=== PATIENT | male | born 1955 | race Caucasian/White ===

== ENCOUNTER → 2016-04-25 | Outpatient (CLI) | payer MEDICARE, MEDICAID ==
[~2016-04-25] MED LIST: ACETAMINOPHEN-O1 TAB PO; ALBUTEROL0.09 MG/A2 IH; ASPIR-LOW81 MG PO; ATIVAN1 MG PO; BACTRIM DS 8001 TA1 PO; CEPHALEXIN500 M1 PO; CIPROFLOXACIN500 MG PO; FLAGYL500 MG PO; GLIMEPIRIDE4 M1 PO; HYDROCODONE BIT1 T11 PO; IBU800 MG PO; KEFLEX500 MG PO; KLOR-CON M2020 ME1 PO; KLOR-CON20 MEQ PO; LANTUS SOLOS100 U/M1 SC; LASIX40 MG PO; LISINOPRIL10 M1 PO; LISINOPRIL10 MG PO; LISINOPRIL20 MG PO; LOVASTATIN40 MG PO; METFORMIN1000 MG PO; NEURONTIN600 MG PO; NEURONTIN800 MG PO; NOVOLOG FLEX100 U/ML SC; OMEPRAZOLE20 MG PO; PRAVASTATIN SOD80 MG PO; QUETIAPINE FUM300 M1 PO; REQUIP0.5 MG PO; SEROQUEL100 MG PO; TERBINAFINE250 MG PO; TRAMADOL HCL50 MG PO; TRAMADOL50 MG PO; ZITHROMAX Z PA250 MG PO; ZOFRAN4 MG PO; [UNRECOGNIZED DRUG - OTHER] PO
== END | disposition home or self-care (01) ==
LOC: MRI 10:53
DX: M48.02 Spinal stenosis, cervical region (principal)

== ENCOUNTER 2016-08-14 14:55 | Emergency (ER) | payer MEDICARE, MEDICAID ==
[~2016-08-14] VITALS: Ht 180.3 cm; Wt 119.3 kg
[2016-08-14] MEDS ORDERED: MEDROL DOSEPAK4 MG PO (15:19)
[2016-08-14] MEDS ORDERED: CYCLOBENZAPRINE10 MG PO (15:19)
[2016-08-14 15:49] LABS: BASO # 0.1 10*3/uL (0.0-0.1); BASO % 0.7 % (0.0-1.0); EOS # 0.7 10*3/uL (0.0-0.4); EOS % 6.4 % (1.0-4.0); HEMATOCRIT 39.9 % (42.0-52.0); HEMOGLOBIN 12.7 g/dl (14.0-18.0); IG # 0.1 10*3/uL (0.0-0.1); LYMPH # 2.5 10*3/uL (1.3-4.4); LYMPH % 24.8 % (27.0-41.0); MEAN CELL VOLUME 85.6 fl (80.0-94.0); MEAN CORPUSCULAR HGB 27.3 pg (27.0-31.0); MEAN CORPUSCULAR HGB CONC 31.8 g/dl (33.0-37.0); MEAN PLATELET VOLUME 10.4 fl (9.6-12.3); MONO # 0.8 10*3/uL (0.1-1.0); MONO % 8.1 % (3.0-9.0); NEUT % 59.3 % (47.0-73.0); PLATELET COUNT AUTOMATED 216 10*3/uL (130-400); RED BLOOD COUNT 4.66 10*6/uL (4.50-5.90); RED CELL DISTRI WIDTH 14.1 % (0-14.5); WHITE BLOOD COUNT 10.1 10*3/uL (4.8-10.8)
[2016-08-14 16:04] LABS: ALKALINE PHOSPHATASE 57 U/L (45-117); BILIRUBIN, TOTAL 0.3 mg/dl (0.2-1.0); BUN 20 mg/dl (7-24); C-REACTIVE PROTEIN 1.63 MG/DL (0-0.3); CARBON DIOXIDE 29 mmol/L (21-32); CHLORIDE 101 mmol/L (98-107); EST GLOM FILT AFRICAN AMERICAN > 60 ml/min; GLUCOSE 125 mg/dL (65-99); POTASSIUM 4.6 mmol/L (3.5-5.1); SGOT/AST 24 IU/L (3-35); SGPT/ALT 30 U/L (12-78); SODIUM 139 mmol/L (136-145); TOTAL PROTEIN 7.8 gm/dL (6.4-8.2)
[2016-08-14 17:45] LABS: LA>2 REFLEX 2 HR DRAW NOW
[2016-08-14 17:53] VITALS: BP 132/71
== END 2016-08-14 22:14 | disposition home or self-care (01) ==
LOC: ED 14:55
PROVIDERS: Physician Assistant
DX: G89.18 Other acute postprocedural pain (principal); M54.2 Cervicalgia; Z90.49 Acquired absence of other specified parts of digestive tract; Z79.82 Long term (current) use of aspirin; Z79.4 Long term (current) use of insulin

== ENCOUNTER 2016-08-16 21:02 | Emergency (ER) | payer MEDICARE, MEDICAID ==
[~2016-08-16] VITALS: Ht 180.3 cm; Wt 120.7 kg
[~2016-08-16 21:02] MED LIST changes: +CYCLOBENZAPRINE10 MG PO; +MEDROL DOSEPAK4 MG PO
[2016-08-16 21:45] LABS: HEMATOCRIT 41.3 % (42.0-52.0); HEMOGLOBIN 13.2 g/dl (14.0-18.0); MEAN CORPUSCULAR HGB 27.2 pg (27.0-31.0); PLATELET COUNT AUTOMATED 257 10*3/uL (130-400); RED BLOOD COUNT 4.86 10*6/uL (4.50-5.90); WHITE BLOOD COUNT 15.8 10*3/uL (4.8-10.8)
[2016-08-16 22:01] LABS: ALBUMIN 3.1 gm/dl (3.1-4.5); ALKALINE PHOSPHATASE 60 U/L (45-117); BILIRUBIN, TOTAL 0.6 mg/dl (0.2-1.0); BUN 18 mg/dl (7-24); CARBON DIOXIDE 28 mmol/L (21-32); CHLORIDE 95 mmol/L (98-107); EST GLOM FILT AFRICAN AMERICAN > 60 ml/min; GLUCOSE 250 mg/dL (65-99); POTASSIUM 4.8 mmol/L (3.5-5.1); SGOT/AST 176 IU/L (3-35); SGPT/ALT 68 U/L (12-78); SODIUM 133 mmol/L (136-145); TOTAL PROTEIN 7.6 gm/dL (6.4-8.2)
[2016-08-16 22:09] LABS: EOSINOPHIL # 0.2 10*3/uL (0-0.4); EOSINOPHILS 1 % (1-4); LYMPHOCYTE # 2.2 10*3/uL (1.3-4.4); MONOCYTE # 2.1 10*3/uL (0.1-1.0); NEUTROPHIL # 11.4 10*3/uL (2.3-7.9); NEUTROPHILS 72 % (47-73); PLATELET SUFFICIENCY NORMAL (NORMAL); POLYCHROMASIA SLIGHT; TOTAL CELLS COUNTED 100 #CELLS
[2016-08-16 22:28] VITALS: BP 170/90
[2016-08-16 23:03] LABS: BILIRUBIN NEGATIVE (NEGATIVE); BLOOD TRACE-LYSED (NEGATIVE); CLARITY SL CLOUDY (CLEAR); COLOR YELLOW (YELLOW); GLUCOSE 1+ (NEGATIVE); KETONE TRACE (NEGATIVE); LEUKO ESTERASE NEGATIVE (NEGATIVE); NITRITE NEGATIVE (NEGATIVE); PROTEIN 3+ (NEGATIVE)
[2016-08-16 23:20] LABS: BACTERIA 1+; EPITHELIAL CELLS 0-2; URINE REFLEX COMMENT NO (NO); WBC 0-2 wbc/hpf (0-5)
[2016-08-16 23:42] LABS: LA>2 REFLEX 2 HR DRAW NOW
== END 2016-08-17 00:58 | disposition short-term general hospital (02) ==
LOC: ED 21:02
PROVIDERS: Physician Assistant
DX: J98.11 Atelectasis (principal); M54.2 Cervicalgia; Z98.890 Other specified postprocedural states; Z79.82 Long term (current) use of aspirin; Z79.899 Other long term (current) drug therapy

== ENCOUNTER → 2016-09-27 | Outpatient (CLI) | payer MEDICARE, MEDICAID | END | disposition home or self-care (01) | LOC: RAD 14:46 | DX: M54.2 Cervicalgia (principal); M54.5 Low back pain; M25.78 Osteophyte, vertebrae; G95.29 Other cord compression; Z98.890 Other specified postprocedural states ==

== ENCOUNTER → 2017-01-08 | Outpatient (CLI) | payer MEDICARE, MEDICAID | END | disposition home or self-care (01) | LOC: RAD 12:57 | DX: R10.31 Right lower quadrant pain (principal); I10 Essential (primary) hypertension; Z90.49 Acquired absence of other specified parts of digestive tract; Z87.891 Personal history of nicotine dependence ==

== ENCOUNTER 2017-01-14 02:53 | Emergency (ER) | payer MEDICARE, MEDICAID ==
[~2017-01-14] VITALS: Ht 180.3 cm; Wt 115.7 kg
[2017-01-14 03:48] LABS: BASO % 0.8 % (0.0-1.0); EOS # 0.2 10*3/uL (0.0-0.4); EOS % 2.9 % (1.0-4.0); HEMATOCRIT 37.5 % (42.0-52.0); HEMOGLOBIN 11.9 g/dl (14.0-18.0); LYMPH % 38.6 % (27.0-41.0); MEAN CELL VOLUME 84.5 fl (80.0-94.0); MEAN CORPUSCULAR HGB 26.8 pg (27.0-31.0); MEAN CORPUSCULAR HGB CONC 31.7 g/dl (33.0-37.0); MEAN PLATELET VOLUME 11.1 fl (9.6-12.3); MONO # 0.4 10*3/uL (0.1-1.0); MONO % 7.8 % (3.0-9.0); NEUT # 2.5 10*3/uL (2.3-7.9); NEUT % 49.7 % (47.0-73.0); PLATELET COUNT AUTOMATED 121 10*3/uL (130-400); RED BLOOD COUNT 4.44 10*6/uL (4.50-5.90); RED CELL DISTRI WIDTH 13.9 % (0-14.5); WHITE BLOOD COUNT 5.1 10*3/uL (4.8-10.8)
[2017-01-14 04:03] LABS: ALBUMIN 3.1 gm/dl (3.1-4.5); ALKALINE PHOSPHATASE 49 U/L (45-117); BUN 18 mg/dl (7-24); CHLORIDE 101 mmol/L (98-107); CREATININE 1.06 mg/dL (0.70-1.30); POTASSIUM 4.4 mmol/L (3.5-5.1); SGOT/AST 45 IU/L (3-35); SGPT/ALT 68 U/L (12-78); SODIUM 137 mmol/L (136-145); TOTAL PROTEIN 7.4 gm/dL (6.4-8.2)
[2017-01-14 05:05] VITALS: BP 117/61
== END 2017-01-14 07:19 | disposition home or self-care (01) ==
LOC: ED 02:53
PROVIDERS: Emergency Medicine
DX: R06.02 Shortness of breath (principal); R09.81 Nasal congestion; R73.9 Hyperglycemia, unspecified; J44.9 Chronic obstructive pulmonary disease, unspecified; Z98.890 Other specified postprocedural states; Z79.82 Long term (current) use of aspirin; Z79.899 Other long term (current) drug therapy

== ENCOUNTER 2017-02-24 21:38 | Inpatient (IN) | payer MEDICARE ==
[~2017-02-24] VITALS: Ht 180.3 cm; Wt 121.2 kg
[~2017-02-24 21:38] MED LIST changes: +OMEPRAZOLE40 MG PO
[2017-02-24 21:51] VITALS: BP 170/85
[2017-02-24 22:13] LABS: BASO % 0.4 % (0.0-1.0); EOS # 0.2 10*3/uL (0.0-0.4); EOS % 2.2 % (1.0-4.0); HEMATOCRIT 37.2 % (42.0-52.0); HEMOGLOBIN 11.6 g/dl (14.0-18.0); MEAN CELL VOLUME 86.5 fl (80.0-94.0); MEAN CORPUSCULAR HGB CONC 31.2 g/dl (33.0-37.0); MEAN PLATELET VOLUME 10.6 fl (9.6-12.3); MONO # 0.8 10*3/uL (0.1-1.0); MONO % 10.8 % (3.0-9.0); NEUT # 4.2 10*3/uL (2.3-7.9); NEUT % 58.2 % (47.0-73.0); PLATELET COUNT AUTOMATED 126 10*3/uL (130-400); RED CELL DISTRI WIDTH 14.4 % (0-14.5); WHITE BLOOD COUNT 7.3 10*3/uL (4.8-10.8)
[2017-02-24 22:29] LABS: ALBUMIN 3.4 gm/dl (3.1-4.5); ALKALINE PHOSPHATASE 51 U/L (45-117); BUN 26 mg/dl (7-24); CHLORIDE 98 mmol/L (98-107); CREATININE 1.22 mg/dL (0.70-1.30); POTASSIUM 4.8 mmol/L (3.5-5.1); SGOT/AST 125 IU/L (3-35); SGPT/ALT 83 U/L (12-78); SODIUM 137 mmol/L (136-145); TOTAL PROTEIN 7.5 gm/dL (6.4-8.2)
[2017-02-25] VITALS (9 sets, daily range): BP systolic 112–132; BP diastolic 64–79
[2017-02-25 00:24] LABS: ACT PARTIAL THROMBO TIME 24.9 SECONDS (20.8-31.5); INTERNATIONAL NORM RATIO 1.1 (2.0-3.5)
[2017-02-25 03:22] LABS: BASO % 0.3 % (0.0-1.0); EOS # 0.2 10*3/uL (0.0-0.4); EOS % 2.2 % (1.0-4.0); HEMATOCRIT 33.7 % (42.0-52.0); HEMOGLOBIN 10.7 g/dl (14.0-18.0); LYMPH # 2.1 10*3/uL (1.3-4.4); LYMPH % 26.6 % (27.0-41.0); MEAN CELL VOLUME 85.3 fl (80.0-94.0); MEAN CORPUSCULAR HGB 27.1 pg (27.0-31.0); MEAN CORPUSCULAR HGB CONC 31.8 g/dl (33.0-37.0); MEAN PLATELET VOLUME 10.9 fl (9.6-12.3); MONO # 0.8 10*3/uL (0.1-1.0); MONO % 9.7 % (3.0-9.0); NEUT # 4.7 10*3/uL (2.3-7.9); NEUT % 60.6 % (47.0-73.0); PLATELET COUNT AUTOMATED 122 10*3/uL (130-400); RED BLOOD COUNT 3.95 10*6/uL (4.50-5.90); RED CELL DISTRI WIDTH 14.3 % (0-14.5); WHITE BLOOD COUNT 7.8 10*3/uL (4.8-10.8)
[2017-02-25 03:34] LABS: ACT PARTIAL THROMBO TIME 30.7 SECONDS (20.8-31.5); INTERNATIONAL NORM RATIO 1.1 (2.0-3.5)
[2017-02-25 03:39] LABS: ALBUMIN 3.2 gm/dl (3.1-4.5); BUN 26 mg/dl (7-24); CHLORIDE 101 mmol/L (98-107); CHOLESTEROL 127 mg/dL (<200); CREATININE 1.12 mg/dL (0.70-1.30); HDL CHOLESTEROL 56 mg/dl (40-60); LDL CHOLESTEROL 60 mg/dL (9-159); PHOSPHOROUS 3.7 mg/dL (2.5-4.9); POTASSIUM 4.1 mmol/L (3.5-5.1); SGOT/AST 109 IU/L (3-35); SODIUM 139 mmol/L (136-145); TRIGLYCERIDES 56 mg/dl (<150); VLDL CHOLESTEROL 11 mg/dL (6-40)
--- NOTE | 2017-02-25 03:45 | NUR ---
DR. LOPEZ NOTIFIED OF CRIT TROPONIN LAB. NO FURTHER ORDERS GIVEN AT THIS TIME.
[2017-02-25 03:47] LABS: ALKALINE PHOSPHATASE 48 U/L (45-117); FREE T4 0.94 ng/dl (0.76-1.46); SGPT/ALT 73 U/L (12-78); TOTAL PROTEIN 6.9 gm/dL (6.4-8.2)
--- NOTE | 2017-02-25 07:04 | NUR ---
DR CASILLAS CALLED BACK AND WAS NOTIFIED OF CURRENT LABS AND PTS CURRENT CONDITION. DR CASILLAS STATED CONTINUE CURRENT TREATMENT PLAN.
[2017-02-25 07:18] LABS: VITAMIN D, 25-HYDROXY 22.8 ng/mL (30-100)
--- NOTE | 2017-02-25 08:04 | NUR ---
CRITICAL TROPONIN. NOTIFIED DR HEATON
--- NOTE | 2017-02-25 11:57 | NUR ---
SL NITRO GIVEN FOR C/O CHEST PAIN FOR 09/09.
[2017-02-25] MEDS ORDERED: PERCOCET 5-3251 EACH PO ×2 (12:01→12:02)
[2017-02-25] MEDS ORDERED: CYMBALTA60 MG PO (12:04)
[2017-02-25] MEDS ORDERED: TRAZODONE50 MG PO (12:04)
[2017-02-25] MEDS ORDERED: VICTOZA 2-0.6 MG/0.1 SC (12:05)
[2017-02-25] MEDS ORDERED: LYRICA50 M1 PO (12:05)
--- NOTE | 2017-02-25 12:26 | NUR ---
RECIEVED IN [facility] 6 FOR TRANSFER OUT FOR HEART CATH. STARTED ON NITRO DRIP TO RELIEVE PAIN.
--- NOTE | 2017-02-25 12:46 | NUR ---
DR. CASILLAS HERE AND PREPARING TO TRANSFER PATIENT FOR HEART CATH. NITRO DRIP TITRATED TO RELIEVE PAIN.
--- NOTE | 2017-02-25 12:48 | NUR ---
PAIN UPON ARRIVAL TO [facility] WAS 7 AT START OF NITRO DRIP. NOW STATES HIS PAIN IS A 4 ON THE PAIN SCALE. TITRATED TO 30 MICS OF NITRO. BP STABLE SEE VITAL SIGNS.
--- NOTE | 2017-02-25 13:44 | NUR ---
TAKEN BY JOHANNA TO [facility] FOR HEART CATHERIZATION.
== END 2017-02-25 13:44 | disposition short-term general hospital (02) | DRG 282 ==
LOC: ED 21:38 → EDHOLD 22:47 → 4E 22:58 → ICCU 02-25 12:19
PROVIDERS: Hospitalist; Student in an Organized Health Care Education/Training Program; ADMIT Internal Medicine
DX: I21.4 Non-ST elevation (NSTEMI) myocardial infarction (principal); D69.6 Thrombocytopenia, unspecified; E11.65 Type 2 diabetes mellitus with hyperglycemia; E66.01 Morbid (severe) obesity due to excess calories; K59.00 Constipation, unspecified; D64.9 Anemia, unspecified; R74.0 Nonspecific elevation of levels of transaminase and lactic acid dehydrogenase [LDH]; E55.9 Vitamin D deficiency, unspecified; M54.5 Low back pain; J44.9 Chronic obstructive pulmonary disease, unspecified; R09.81 Nasal congestion; Z82.49 Family history of ischemic heart disease and other diseases of the circulatory system; Z79.4 Long term (current) use of insulin; Z83.3 Family history of diabetes mellitus; Z80.0 Family history of malignant neoplasm of digestive organs; Z79.82 Long term (current) use of aspirin; Z68.32 Body mass index [BMI] 32.0-32.9, adult; Z90.49 Acquired absence of other specified parts of digestive tract

== ENCOUNTER 2017-03-15 22:58 | Inpatient (IN) | payer MEDICARE ==
[~2017-03-15] VITALS: Ht 180.3 cm; Wt 116.4 kg
[~2017-03-15 22:58] MED LIST changes: +CYMBALTA60 MG PO; +LYRICA50 M1 PO; +PERCOCET 5-3251 EACH PO; +TRAZODONE50 MG PO; +VICTOZA 2-0.6 MG/0.1 SC
[2017-03-15 23:02] VITALS: BP 156/79
[2017-03-15 23:05] VITALS: BP 156/79
[2017-03-15 23:14] LABS: BASO # 0.1 10*3/uL (0.0-0.1); BASO % 0.8 % (0.0-1.0); EOS # 0.2 10*3/uL (0.0-0.4); EOS % 2.6 % (1.0-4.0); HEMOGLOBIN 12.2 g/dl (14.0-18.0); LYMPH # 2.7 10*3/uL (1.3-4.4); LYMPH % 31.9 % (27.0-41.0); MEAN CELL VOLUME 85.2 fl (80.0-94.0); MEAN CORPUSCULAR HGB 26.6 pg (27.0-31.0); MEAN CORPUSCULAR HGB CONC 31.3 g/dl (33.0-37.0); MEAN PLATELET VOLUME 10.1 fl (9.6-12.3); MONO # 0.9 10*3/uL (0.1-1.0); NEUT # 4.6 10*3/uL (2.3-7.9); NEUT % 54.2 % (47.0-73.0); PLATELET COUNT AUTOMATED 186 10*3/uL (130-400); RED BLOOD COUNT 4.58 10*6/uL (4.50-5.90); RED CELL DISTRI WIDTH 14.4 % (0-14.5); WHITE BLOOD COUNT 8.6 10*3/uL (4.8-10.8)
[2017-03-15 23:16] VITALS: BP 134/73
[2017-03-15 23:30] VITALS: BP 134/73
[2017-03-15 23:31] LABS: ACT PARTIAL THROMBO TIME 25.5 SECONDS (20.8-31.5); ALBUMIN 3.5 gm/dl (3.1-4.5); ALKALINE PHOSPHATASE 56 U/L (45-117); BUN 23 mg/dl (7-24); CHLORIDE 101 mmol/L (98-107); CREATININE 1.17 mg/dL (0.70-1.30); INTERNATIONAL NORM RATIO 1.1 (2.0-3.5); POTASSIUM 4.5 mmol/L (3.5-5.1); SGOT/AST 35 IU/L (3-35); SGPT/ALT 56 U/L (12-78); SODIUM 135 mmol/L (136-145); TOTAL PROTEIN 8.2 gm/dL (6.4-8.2)
[2017-03-15 23:34] LABS: TROPONIN I 0.073 ng/ml (<0.045)
[2017-03-15 23:45] VITALS: BP 124/67
[2017-03-16] VITALS (7 sets, daily range): BP systolic 120–188; BP diastolic 61–75
--- NOTE | 2017-03-16 01:48 | NUR ---
Time: 44 A 61 year old MALE admitted to 5E under services of MONTEZ TRAN DO. Pt. arrived via bed from ER. Chief complaint: CHEST PAIN. CHARY HECK
--- NOTE | 2017-03-16 01:49 | NUR ---
PATIENT AWAKE AND ALERT, WITH PATIENT. +1 BRYSON PEDAL EDEMA, SKIN WARM DRY AND PINK. NO OPEN AREAS NOTED TO SKIN. PATIENT TALKATIVE AND PLEASANT. DENIES SHORTNESS OF BREATH. STATES CHEST PAIN IS 4/10. NO S/S OF DISTRESS. IV INTACT IN RAC.
--- NOTE | 2017-03-16 02:13 | NUR ---
DR BENSON'S SERVICE WAS CALLED AND NOTIFIED OF CONSULT FOR ELEVATED TROPONIN, RECENT STENT PLACEMENT AND PATIENT OF DR. CASILLAS'S.
[2017-03-16 02:15] LABS: CKMB 2.7 ng/ml (0.5-3.6)
--- NOTE | 2017-03-16 02:15 | NUR ---
PATIENT WAS ADMITTED UNDER DR. MONTEZ RICO, NOT DR. PETE RICO.
[2017-03-16 02:23] LABS: TROPONIN I 0.076 ng/ml (<0.045)
--- NOTE | 2017-03-16 02:39 | NUR ---
SECOND TROPONIN RESULT IS 0.076, DR CAVAZOS'S SERVICE WAS CONTACTED.
--- NOTE | 2017-03-16 02:56 | NUR ---
DR. CASILLAS RETURNED THE CALL AND STATED HE WOULD SEE HIM IN A LITTLE WHILE. TROPONIN RESULTS WERE GIVEN.
[2017-03-16 05:59] LABS: BASO # 0.1 10*3/uL (0.0-0.1); BASO % 0.7 % (0.0-1.0); EOS # 0.2 10*3/uL (0.0-0.4); EOS % 2.9 % (1.0-4.0); HEMATOCRIT 34.6 % (42.0-52.0); HEMOGLOBIN 11.1 g/dl (14.0-18.0); LYMPH # 2.4 10*3/uL (1.3-4.4); LYMPH % 33.8 % (27.0-41.0); MEAN CELL VOLUME 84.6 fl (80.0-94.0); MEAN CORPUSCULAR HGB 27.1 pg (27.0-31.0); MEAN CORPUSCULAR HGB CONC 32.1 g/dl (33.0-37.0); MEAN PLATELET VOLUME 10.8 fl (9.6-12.3); MONO # 0.7 10*3/uL (0.1-1.0); MONO % 10.4 % (3.0-9.0); NEUT # 3.7 10*3/uL (2.3-7.9); NEUT % 51.8 % (47.0-73.0); PLATELET COUNT AUTOMATED 145 10*3/uL (130-400); RED BLOOD COUNT 4.09 10*6/uL (4.50-5.90); RED CELL DISTRI WIDTH 14.5 % (0-14.5); WHITE BLOOD COUNT 7.1 10*3/uL (4.8-10.8)
[2017-03-16 06:02] LABS: ALBUMIN 3.1 gm/dl (3.1-4.5); ALKALINE PHOSPHATASE 49 U/L (45-117); BUN 22 mg/dl (7-24); CHLORIDE 102 mmol/L (98-107); CHOLESTEROL 96 mg/dL (<200); CREATININE 0.91 mg/dL (0.70-1.30); FREE T4 0.97 ng/dl (0.76-1.46); HDL CHOLESTEROL 42 mg/dl (40-60); LDL CHOLESTEROL 31 mg/dL (9-159); PHOSPHOROUS 3.9 mg/dL (2.5-4.9); POTASSIUM 3.8 mmol/L (3.5-5.1); SGOT/AST 32 IU/L (3-35); SGPT/ALT 47 U/L (12-78); SODIUM 138 mmol/L (136-145); TOTAL PROTEIN 7.2 gm/dL (6.4-8.2); TRIGLYCERIDES 114 mg/dl (<150); VLDL CHOLESTEROL 23 mg/dL (6-40)
[2017-03-16 07:00] LABS: INTERNATIONAL NORM RATIO 1.1 (2.0-3.5)
[2017-03-16 07:50] LABS: VITAMIN D, 25-HYDROXY 26.6 ng/mL (30-100)
--- NOTE | 2017-03-16 09:00 | NUR ---
Arboriculture Instructor in to talk to patient. Patient states lives at home with . There are few steps in the home. Physician: young Pharmacy: [facility] Home health services: none Patient's level of ADLs: INDEPENDENT Patient has working utilities: all working DME: none Follow-up physician's appointment after d/c: will be made by hospitalist nurse director upon discharge Does patient want to access PORTAL?: no Discharge plan discussed with patient, patient lives at home with , is independent in adls and ambulation, drives, patient states he will be going back home and denies any home needs. LISSET ROSA
[2017-03-16] MEDS ORDERED: AMARYL4 MG PO (09:13)
[2017-03-16] MEDS ORDERED: METOPROLOL SUCC50 M1 PO (09:13)
[2017-03-16] MEDS ORDERED: PLAVIX75 M1 PO (09:14)
[2017-03-16] MEDS ORDERED: TRAZODONE150 MG PO (09:14)
[2017-03-16] MEDS ORDERED: IMDUR SA30 MG PO (09:14)
[2017-03-16] MEDS ORDERED: CEPHULAC10 GM/151 PO (09:16)
[2017-03-16] MEDS ORDERED: LIPITOR80 MG PO (09:16)
[2017-03-16] MEDS ORDERED: ATIVAN1 MG PO (09:17)
[2017-03-16 09:25] LABS: BILIRUBIN NEGATIVE (NEGATIVE); BLOOD NEGATIVE (NEGATIVE); CLARITY SL CLOUDY (CLEAR); COLOR YELLOW (YELLOW); GLUCOSE NEGATIVE (NEGATIVE); KETONE NEGATIVE (NEGATIVE); LEUKO ESTERASE NEGATIVE (NEGATIVE); NITRITE NEGATIVE (NEGATIVE); PH 5.5 (5.0-9.0)
[2017-03-16 10:05] LABS: BACTERIA TRACE; MUCOUS 1+
--- NOTE | 2017-03-16 23:50 | NUR ---
PER PATIENTS REQUEST PEROCET WAS GIVEN FOR GENERALIZED PAIN RATED 7/10. WILL EVALUATE FOR EFFECTIVENESS.
[2017-03-17] VITALS: BP 136/74
--- NOTE | 2017-03-17 01:00 | NUR ---
PT RESTING IN CHAIR. STATES PAIN IS LESS AT THIS TIME. PT HAS NO COMPLAINTS AT THIS TIME.
[2017-03-17 06:50] LABS: BASO % 0.5 % (0.0-1.0); EOS # 0.2 10*3/uL (0.0-0.4); EOS % 3.4 % (1.0-4.0); HEMATOCRIT 34.1 % (42.0-52.0); LYMPH # 1.9 10*3/uL (1.3-4.4); LYMPH % 32.4 % (27.0-41.0); MEAN CELL VOLUME 84.6 fl (80.0-94.0); MEAN CORPUSCULAR HGB 27.3 pg (27.0-31.0); MEAN CORPUSCULAR HGB CONC 32.3 g/dl (33.0-37.0); MEAN PLATELET VOLUME 11.2 fl (9.6-12.3); MONO # 0.7 10*3/uL (0.1-1.0); MONO % 11.9 % (3.0-9.0); NEUT # 3.1 10*3/uL (2.3-7.9); NEUT % 51.5 % (47.0-73.0); PLATELET COUNT AUTOMATED 131 10*3/uL (130-400); RED BLOOD COUNT 4.03 10*6/uL (4.50-5.90); RED CELL DISTRI WIDTH 14.4 % (0-14.5)
[2017-03-17 07:32] LABS: CHLORIDE 100 mmol/L (98-107); POTASSIUM 4.1 mmol/L (3.5-5.1); SODIUM 138 mmol/L (136-145)
[2017-03-17 07:41] LABS: BUN 26 mg/dl (7-24); CREATININE 0.99 mg/dL (0.70-1.30); PHOSPHOROUS 3.7 mg/dL (2.5-4.9)
[2017-03-17 08:00] VITALS: BP 118/74
--- NOTE | 2017-03-17 09:50 | NUR ---
PATIENT COMPLAINING OF GENERALIZED PAIN AT THIS TIME AND MEDICATED WITH PO PERCOCET PER ORDER. WILL MONITOR FOR EFFECTIVENESS.
--- NOTE | 2017-03-17 11:20 | NUR ---
PER PATIENT, PERCOCET HAS BEEN EFFECTIVE. NO FURTHER COMPLAINTS.
[2017-03-17 12:00] VITALS: BP 160/82
[2017-03-17] MEDS ORDERED: VITAMIN D-32000 UNI1 PO (14:08)
[2017-03-17] MEDS ORDERED: COLCHICINE0.6 M1 PO (16:43)
[2017-03-17] MEDS ORDERED: NAPROXEN500 MG PO (16:43)
--- NOTE | 2017-03-17 16:48 | NUR ---
Discharge instructions reviewed with patient/family. Patient receptive and verbalizes understanding. Follow-up care arranged. Written instructions given to patient/family. HEPLOCK DISCONTINUED. PATIENT AMBULATORY OFF FLOOR WITH . ENVIRONMENTAL SAMPLER REMOVED. SORAYA ALVARADO
== END 2017-03-17 16:48 | disposition home or self-care (01) | DRG 206 ==
LOC: ED 22:58 → EDHOLD 03-16 00:22 → 5E 03-16 00:32
PROVIDERS: Emergency Medicine; Family Medicine; Internal Medicine Nephrology; ADMIT Emergency Medicine
DX: M94.0 Chondrocostal junction syndrome [Tietze] (principal); I74.9 Embolism and thrombosis of unspecified artery; I31.3 Pericardial effusion (noninflammatory); E11.65 Type 2 diabetes mellitus with hyperglycemia; E66.01 Morbid (severe) obesity due to excess calories; E87.1 Hypo-osmolality and hyponatremia; I10 Essential (primary) hypertension; J44.9 Chronic obstructive pulmonary disease, unspecified; K59.00 Constipation, unspecified; D64.9 Anemia, unspecified; I25.2 Old myocardial infarction; Z68.36 Body mass index [BMI] 36.0-36.9, adult; Z79.84 Long term (current) use of oral hypoglycemic drugs; Z98.1 Arthrodesis status; Z79.4 Long term (current) use of insulin; Z90.49 Acquired absence of other specified parts of digestive tract; Z79.899 Other long term (current) drug therapy; Z82.49 Family history of ischemic heart disease and other diseases of the circulatory system; Z80.0 Family history of malignant neoplasm of digestive organs; Z79.82 Long term (current) use of aspirin; Z95.5 Presence of coronary angioplasty implant and graft

== ENCOUNTER → 2017-04-12 | Outpatient (CLI) | payer MEDICARE ==
[~2017-04-12] MED LIST changes: +AMARYL4 MG PO; +CEPHULAC10 GM/151 PO; +COLCHICINE0.6 M1 PO; +IMDUR SA30 MG PO; +LIPITOR80 MG PO; +METOPROLOL SUCC50 M1 PO; +NAPROXEN500 MG PO; +PLAVIX75 M1 PO; +TRAZODONE150 MG PO; +VITAMIN D-32000 UNI1 PO
[2017-04-12 10:24] LABS: ALBUMIN 3.3 gm/dl (3.1-4.5); BILIRUBIN, DIRECT < 0.1 mg/dL (0.0-0.2); BUN 17 mg/dl (7-24); CHLORIDE 99 mmol/L (98-107); CHOLESTEROL 173 mg/dL (<200); CREATININE 1.02 mg/dL (0.70-1.30); POTASSIUM 4.2 mmol/L (3.5-5.1); SGOT/AST 35 IU/L (3-35); SGPT/ALT 61 U/L (12-78); SODIUM 137 mmol/L (136-145); TOTAL PROTEIN 7.5 gm/dL (6.4-8.2); TRIGLYCERIDES 121 mg/dl (<150); VLDL CHOLESTEROL 24 mg/dL (6-40)
[2017-04-12 10:28] LABS: ALKALINE PHOSPHATASE 51 U/L (45-117); HDL CHOLESTEROL 54 mg/dl (40-60); LDL CHOLESTEROL 95 mg/dL (9-159)
[2017-04-12 11:07] LABS: VITAMIN D, 25-HYDROXY 24.1 ng/mL (30-100)
== END | disposition home or self-care (01) ==
LOC: LAB 09:38
PROVIDERS: Internal Medicine
DX: E11.65 Type 2 diabetes mellitus with hyperglycemia (principal); E11.40 Type 2 diabetes mellitus with diabetic neuropathy, unspecified; E78.5 Hyperlipidemia, unspecified; N40.0 Benign prostatic hyperplasia without lower urinary tract symptoms; E55.9 Vitamin D deficiency, unspecified

== ENCOUNTER → 2017-08-08 | Outpatient (CLI) | payer MEDICARE ==
[2017-08-08 13:46] LABS: BILIRUBIN NEGATIVE (NEGATIVE); BLOOD TRACE-INTACT (NEGATIVE); CLARITY CLEAR (CLEAR); COLOR YELLOW (YELLOW); GLUCOSE NEGATIVE (NEGATIVE); KETONE TRACE (NEGATIVE); LEUKO ESTERASE NEGATIVE (NEGATIVE); NITRITE NEGATIVE (NEGATIVE); SPECIFIC GRAVITY >= 1.030 (1.005-1.030)
[2017-08-08 14:16] LABS: ALBUMIN 3.3 gm/dl (3.1-4.5); ALKALINE PHOSPHATASE 48 U/L (45-117); BILIRUBIN, DIRECT 0.1 mg/dL (0.0-0.2); BUN 14 mg/dl (7-24); CHLORIDE 102 mmol/L (98-107); CHOLESTEROL 116 mg/dL (<200); CREATININE 0.93 mg/dL (0.70-1.30); HDL CHOLESTEROL 55 mg/dl (40-60); LDL CHOLESTEROL 33 mg/dL (9-159); POTASSIUM 4.5 mmol/L (3.5-5.1); SGOT/AST 48 IU/L (3-35); SGPT/ALT 56 U/L (12-78); SODIUM 138 mmol/L (136-145); TOTAL PROTEIN 7.7 gm/dL (6.4-8.2); TRIGLYCERIDES 142 mg/dl (<150); VLDL CHOLESTEROL 28 mg/dL (6-40)
[2017-08-08 14:19] LABS: MUCOUS 1+; RBC 0-2 rbc/hpf (0-2)
[2017-08-08 14:35] LABS: VITAMIN D, 25-HYDROXY 27.9 ng/mL (30-100)
== END | disposition home or self-care (01) ==
LOC: LAB 13:09
PROVIDERS: Internal Medicine
DX: G62.9 Polyneuropathy, unspecified (principal); E55.9 Vitamin D deficiency, unspecified; E11.9 Type 2 diabetes mellitus without complications; E78.5 Hyperlipidemia, unspecified

== ENCOUNTER → 2017-09-07 | Outpatient (CLI) | payer MEDICARE ==
[~2017-09-07] MED LIST changes: +ALDACTONE25 MG PO; +BUMETANIDE2 MG PO; +CRESTOR40 M1 PO; +DOCUSATE SODIU100 M2 PO; +FARXIGA5 M1 PO; -LISINOPRIL10 M1 PO; +LYRICA100 M1 PO; +OCUVITE WITH L1 EACH PO; +POTASSIUM CHLO20 MEQ PO; +PREDNISONE20 M1 PO; +REXULTI2 MG PO; +TORSEMIDE20 MG PO; +VISTARIL50 MG PO; +VITAMIN D5000 UNIT PO; +VRAYLAR3 MG PO; +ZESTRIL2.5 MG PO; +ZITHROMAX250 MG PO
--- NOTE | ~2017-09-07 | ST ---
[place], [place] EXERCISE STRESS TEST REPORT NAME: FANNY AGUILA [facility] #: [id number] UNIT #: [id number] ROOM: DOCTOR: STEPHANIE CASILLAS MD BIRTHDATE: [birth year] DOS: 09/07/2017 LEXISCAN STRESS EKG. REFERRING PHYSICIAN: Dr. Julian INDICATION: Shortness of breath. The patient underwent standard protocol Lexiscan stress EKG. Baseline EKG shows normal sinus rhythm, nonspecific ST-T wave changes. The patient's baseline heart rate of 87 with blood pressure 136/70. The patient's peak heart rate was 91 with a blood pressure 140/61. The patient had no chest pain, no ischemic changes and with rare PVCs as the only arrhythmia. SUMMARY OF FINDINGS: Unremarkable Lexiscan stress EKG. Please see separate report for perfusion scan results. STEPHANIE CASILLAS MD CM:STRESS:EXERCISE STRESS TEST REPORT [id number] STEPHANIE CASILLAS MD
== END | disposition home or self-care (01) ==
LOC: CARD 07:41
DX: I21.4 Non-ST elevation (NSTEMI) myocardial infarction (principal); I51.7 Cardiomegaly; R07.2 Precordial pain; R06.02 Shortness of breath

== ENCOUNTER 2017-09-11 14:36 | Inpatient (IN) | payer MEDICARE ==
[2017-09-11] VITALS (8 sets, daily range): BP systolic 94–166; BP diastolic 46–72
[~2017-09-11] VITALS: Ht 180.3 cm; Wt 122.5 kg
--- NOTE | ~2017-09-11 | CON ---
[place], [place] REPORT OF CONSULTATION NAME: FANNY AGUILA [facility] #: [id number] UNIT #: [id number] ROOM: 525 DOCTOR: MARY COX MD BIRTHDATE: [birth year] DOS: 09/12/2017 REASON FOR CONSULTATION: Dyspnea, history of coronary artery disease. HISTORY OF PRESENT ILLNESS: The patient is a 62-year-old man who does have a history of multiple medical problems including type 2 diabetes mellitus, obstructive sleep apnea, chronic obstructive pulmonary disease, varicose veins, morbid obesity, and depression. He reports having catheterization in July 2016, which showed "mild disease." He presented to the hospital in January 2017 with increased chest pain and dyspnea. Troponin was over 10 and he was transferred to the [facility] where catheterization on 02/25/2017 showed an ejection fraction of 55%. The left main was free of disease. The LAD had a 50% stenosis. The circumflex had a 50% distal stenosis. A small second obtuse marginal had a 70% stenosis. The nondominant right coronary artery was occluded and was treated with angioplasty and placement of a 2.0 mm drug-eluting stent that was postdilated to 2.25 mm. He had an excellent angiographic response. Since then, he has felt reasonably well, but gradually has developed worsening dyspnea and fatigue. He was seen by Dr. Ragsdale, who arranged for an echocardiogram and stress test. The echocardiogram on 09/07/2017 showed normal left ventricular size, segmental wall motion and systolic function with an ejection fraction between 55 and 60%. There was stage 1 diastolic dysfunction, but no significant valve disease. The myocardial perfusion study done on 09/07/2017 showed an ejection fraction of 66% and normal myocardial perfusion. There was no evidence for ischemia. The patient states that since his angioplasty in January 2017, he has been free of any significant chest pain. He only recalls 1 very brief episode of chest pain several days ago, which was unlike the pain he had at the time of his heart attack. His biggest complaint has been worsening dyspnea. He states that he is to the point where he becomes breathless and lightheaded with walking short distances. He was seen by his trauma therapist, Dr. Saunders, as an outpatient and then hospitalized for further assessment. Since his admission, his electrocardiograms have shown no acute changes. Serial cardiac troponin levels have been normal. Chest x-ray shows no infiltrates and a CT scan of the chest showed no acute process. He did have evidence for cirrhosis. PAST MEDICAL HISTORY: Includes, 1. Coronary artery disease documented first in July 2016. 2. Status post acute myocardial infarction January 2017. Catheterization 02/25/2017 showed a normal left main, 50% LAD stenosis, 50% distal circumflex stenosis, 70% stenosis of a small second obtuse marginal and total occlusion of a nondominant right coronary artery. The right coronary artery was treated with a drug-eluting stent. 3. History of deep venous thrombosis and varicose veins. 4. Degenerative joint disease. 5. Morbid obesity. 6. Type 2 diabetes mellitus. 7. Depression. [place], [place] REPORT OF CONSULTATION [id number] UNIT #: [id number] ROOM: [facility] DOCTOR: MARY COX MD BIRTHDATE: [birth year] 8. Status post cholecystectomy, cervical spine fusion, and varicose vein stripping. MEDICATIONS PRIOR TO ADMISSION: Aspirin 81 mg per day, bumetanide 2 mg daily, cariprazine 3 mg daily, cholecalciferol 2000 units daily, clopidogrel 75 mg daily, Farxiga 5 mg daily, docusate 100 mg daily, duloxetine 60 mg daily, glimepiride 8 mg daily, hydroxyzine 50 mg p.r.n. itch, isosorbide mononitrate 30 mg daily, lactulose 30 mL t.i.d. as needed, lisinopril 2.5 mg per day, lorazepam 2 mg at bedtime, metformin 1000 mg b.i.d., metoprolol 25 mg daily, omeprazole 40 mg daily, oxycodone with acetaminophen q.4 hours p.r.n., potassium 20 mEq daily, Lyrica 100 mg b.i.d., rosuvastatin 40 mg daily, spironolactone 25 mg daily, Ocuvite daily, Lantus insulin 80 units twice a day and Victoza 1.8 mg subcutaneously daily. ALLERGIES: He has no known drug allergies. FAMILY HISTORY: The patient's father at age 75 from a heart attack and uncle of colon cancer and heart disease. His mother of cancer. REVIEW OF SYSTEMS: The patient denies diplopia, loss of vision, or focal weakness. He does have dyspnea with minor exertion, severe fatigue and leg weakness. He denies nausea or vomiting. He denies fevers, chills, sweats or recent weight change. He denies orthopnea or PND. He has had peripheral edema. He denies any chest pain similar to what he had with his myocardial infarction. He denies nausea or vomiting. He denies change in bowel or bladder habits. He denies bleeding from any site and specifically denies hematuria, hematochezia, hemoptysis or hematemesis. He denies any new skin rashes. Remainder review of systems is negative except as noted above. SOCIAL HISTORY: The patient is and lives with his . He drinks alcohol rarely. He was a smoker, but quit more than 20 years ago. PHYSICAL EXAMINATION: GENERAL: The patient is markedly overweight white male who is awake, alert and oriented. VITAL SIGNS: Pulse is 100 and regular, blood pressure is 142/65. He is afebrile. He weighs 122.5 kg and has a body mass index of 51. HEENT: Normocephalic and atraumatic. Extraocular muscles are intact. Sclerae are clear. Pupils equal, round and react to light. The oral mucosa is moist. Tongue is midline. NECK: Supple. He has no jugular distention. He does have mild hepatojugular reflux. Carotids are full. I heard no bruits. He had no neck or supraclavicular masses. He has well-healed anterior and posterior cervical laminectomy scars. He has no bruits or thyromegaly. LUNGS: Respirations are unlabored at rest. He does have decreased breath sounds with a few crackles at the bases bilaterally. He does have presacral edema. He has no chest wall tenderness. CARDIOVASCULAR: His heart has a regular rhythm. He has a fourth heart sound, but no third heart sound. The PMI could not be felt. He has no obvious murmurs or rubs. There is no precordial heave, lift or thrill. [place], [place] REPORT OF CONSULTATION NAME: FANNY AGUILA UNIT #: [id number] ROOM: [facility] DOCTOR: MARY COX MD BIRTHDATE: [birth year] ABDOMEN: Obese. There seems to be a slight fluid wave. There are no masses or organomegaly. He has no tenderness or rebound. EXTREMITIES: Showed no clubbing or cyanosis. He does have 2+ edema to above the knees. Pedal pulses are diminished, but palpable in the feet bilaterally. LABORATORY DATA: I reviewed his electrocardiogram, which showed sinus rhythm, but no acute changes. It was unchanged from previous electrocardiograms. Serial cardiac biomarkers have been normal. Hemoglobin is 11.5, white count 6200, platelet count 133,000. Sodium 135, potassium 5.0, chloride 99, CO2 of 27, BUN 38, creatinine 1.4. Sugar was 462 this morning. IMPRESSION: 1. Fluid overload. The patient does have a history of renal insufficiency, fatty liver, and mild diastolic dysfunction, exacerbated by obstructive sleep apnea and morbid obesity. He has also been a diabetic for quite some time. His fluid overload may be related to diastolic left ventricular failure, chronic respiratory problems, nephrosis from diabetic renal disease, etc. I doubt that this represents an acute coronary syndrome given his recent catheterization results, unremarkable EKG, normal troponin, etc. 2. Morbid obesity. 3. Type 2 diabetes mellitus, on insulin. 4. Chronic obstructive pulmonary disease. 5. Fatty liver with cirrhotic changes. PLAN: We will aggressively diurese the patient over the next 24 hours to see if that does not improve his respiratory status. I will be getting urinalysis and micro urine albumin levels to see if he has evidence for nephrotic syndrome. He recently did have an echo and stress test, which were relatively benign. I do not think that any other cardiac workup at this time will be fruitful. We will follow the patient with his other physicians and we thank the hospitalist physicians for asking our advice regarding the patient's care. MARY COX MD CM:CONSTR:REPORT OF CONSULTATION 1420 09/12/17 1514 interface
--- NOTE | ~2017-09-11 | PR ---
[place], [place] PROGRESS NOTE NAME: FANNY NERI [facility] #: [id number] UNIT #: [id number] ROOM: 525 DOCTOR: MARY COX MD BIRTHDATE: [birth year] DOS: 09/13/2017 CARDIOLOGY PROGRESS NOTE SUBJECTIVE: Fanny Neri was seen at his bedside today with his in attendance. He diuresed briskly overnight and is feeling significantly better. He is less fatigued and is breathing much more easily. He denies any chest pain, palpitations or syncope. His notes that he has had multiple tick bites over the last few years. She states that he has had a target lesion and rash. She is worried about Lyme disease. She states that he was tested once, but the test was unremarkable. She would like him to be tested again. PHYSICAL EXAMINATION: VITAL SIGNS: Today, his pulse is 79 and regular, blood pressure is 145/66. He is afebrile. NECK: Supple. He has no jugular distention. Carotids are full. I heard no bruits. LUNGS: Respirations were unlabored. His chest was clear to auscultation and percussion. He had decreased breath sounds at the bases; however, but he had no rales. He has no presacral edema. HEART: Has a regular rhythm with an S4 gallop. Heart tones are distant. There were no murmurs. ABDOMEN: Obese, but otherwise benign. EXTREMITIES: Showed 1+ edema of the ankles and feet bilaterally despite the fact that he has been lying down with his feet elevated. Hemoglobin today is 11.3, white count 10,600, platelet count 146,000. Sodium 136, potassium 4.5, chloride 97, CO2 27, BUN 43 and creatinine 1.33. IMPRESSION: 1. Fluid overload. The patient has a history of renal insufficiency, fatty liver and mild diastolic dysfunction, exacerbated by obstructive sleep apnea and morbid obesity. We did look for nephrotic syndrome, but his urinalysis showed no protein. He does seem to be responding nicely to aggressive diuresis. 2. Morbid obesity. 3. Type 2 diabetes mellitus, on insulin. 4. Chronic obstructive pulmonary disease. 5. Fatty liver with cirrhotic changes. PLAN: We will continue aggressive diuresis for another 24 hours and continue to observe him with his other physicians. We will also continue to monitor his renal functions. I thank the hospitalist physicians for asking our advice regarding his care. [place], [place] PROGRESS NOTE NAME: FANNY NERI UNIT #: [id number] ROOM: 525 DOCTOR: BROOKE SCHWARZ,MARY BIRTHDATE: [birth year] MARY COX MD CM:PNTRANS [id number] [id number] MARY COX MD 09/13/17 1508 interface
--- NOTE | ~2017-09-11 | EKG ---
[place], [place] ELECTROCARDIOGRAM REPORT NAME: FANNY AGUILA UNIT #: [id number] ROOM: [facility] DOCTOR: BRUNO OBREGON MD,INDER BIRTHDATE: [birth year] DOS: 09/11/2017 TIME: 03:58 p.m. Electrocardiogram showed normal sinus rhythm. Heart rate 82 beats per minute. INDER CARR MD CM:EKGRPT:ELECTROCARDIOGRAM REPORT [id number] INDER OBREGON MD
--- NOTE | ~2017-09-11 | PR ---
[place], [place] PROGRESS NOTE NAME: FANNY AGUILA [facility] #: [id number] UNIT #: [id number] ROOM: 525 DOCTOR: MARY COX MD BIRTHDATE: [birth year] DOS: 09/15/2017 SUBJECTIVE: The patient was seen at his bedside today, 09/15/2017, for followup of his acute on chronic diastolic congestive heart failure. He continues to diurese despite the fact that he has been switched from IV furosemide to oral torsemide. His fluid balance remains negative and he feels much better. He has been able to ambulate in the halls without difficulty. His legs are no longer swollen and he feels back to his normal self. PHYSICAL EXAMINATION: VITAL SIGNS: Today, pulse is 84 and regular, blood pressure 134/66. He is afebrile. NECK: Supple. He has no jugular distention. Carotids are full. I heard no bruits. LUNGS: Respirations are unlabored and his chest is clear to auscultation and percussion. HEART: Has a regular rhythm. He has a fourth heart sound, but no third heart sound or murmur. The PMI is not displaced. He has no precordial heave, lift or thrill. ABDOMEN: Soft and normally active. EXTREMITIES: Showed no edema. Peripheral pulses are palpable in the feet. LABORATORY DATA: Hemoglobin today is 12.3, white count is 12,000, platelet count 170,000. Sodium is 138, potassium 4.0, chloride 97, CO2 33, BUN 46, creatinine 1.36. IMPRESSION: 1. Fluid overload. This is probably due to a combination of diastolic heart failure, renal insufficiency, fatty liver, obstructive sleep apnea and morbid obesity. He does have proteinuria, but no evidence for nephrotic syndrome. 2. Morbid obesity. 3. Type 2 diabetes mellitus, on insulin. 4. Chronic obstructive pulmonary disease. 5. Fatty liver with cirrhotic change. PLAN: We will continue aggressive oral diuresis. Since he appears euvolemic, I think he could be discharged to home with close outpatient followup. He probably should have renal functions rechecked in about a week and followup in the office in 2-3 weeks. He should continue to weigh himself on a daily basis and let us know if his weight increases 3 pounds overnight or 5 pounds in a week. At the time of this dictation, his medications include torsemide 40 mg b.i.d., spironolactone 25 mg daily, Lyrica 50 mg t.i.d., potassium 20 mEq daily, metoprolol 25 mg daily, metformin 1000 mg b.i.d., lisinopril 2.5 mg daily, Victoza subcutaneously daily, isosorbide mononitrate 30 mg daily, Lantus insulin twice a day, Cymbalta 60 mg daily, Colace 100 mg daily, clopidogrel 75 mg daily, cholecalciferol 2000 units daily, atorvastatin 40 mg daily, aspirin 81 mg daily, glimepiride 8 mg daily, omeprazole 40 mg daily, Percocet 4 hours p.r.n., lactulose 20 grams t.i.d. p.r.n., Vistaril 50 mg daily p.r.n., Humalog insulin by sliding scale, DuoNeb by nebulizer q. 4 hours as needed, Restoril 15 mg p.o. at bedtime. He is also on steroids, which will probably be decreased on a [place], [place] PROGRESS NOTE NAME: FANNY AGUILA UNIT #: [id number] ROOM: [facility] DOCTOR: MARY COX MD BIRTHDATE: [birth year] sliding scale. I would like to have him follow up with us in the office in a few weeks. I thank the hospitalist group for asking our advice regarding his care. MARY COX MD CM:PNTRANS [id number] MARY COX MD 09/15/17 2256 interface
--- NOTE | ~2017-09-11 | PR ---
[place], [place] PROGRESS NOTE NAME: FANNY AGUILA [facility] #: [id number] UNIT #: [id number] ROOM: 525 DOCTOR: BRUNO OBREGON MD,INDER BIRTHDATE: [birth year] DOS: 09/14/2017 SUBJECTIVE: The patient noted comfortable at this time without any acute distress, has not been noted any symptoms of chest pain. Shortness of breath is improving and edema of the extremities of the patient was also improving with reduction of the body weight for the patient, less fluid retention per patient. OBJECTIVE: VITAL SIGNS: Normal temperature, respiratory rate 18, heart rate 86, blood pressure 140/48. Pulse ox saturation on room air 96% saturation. HEENT: Examination shows head was atraumatic. Eyes nonicterus. NECK: Supple. CARDIOVASCULAR: S1, S2 audible. LUNGS: Without any wheeze or crackles. ABDOMEN: Soft, nontender. EXTREMITIES: Resolving edema. LABORATORY DATA: CBC: WBC count of 12,000. Hemoglobin 12, platelet count normal. BMP: BUN 46, creatinine was normal. IMPRESSION: 1. The patient with resolving over fluid retention for this patient progressively at the present time. 2. Resolving acute exacerbation of bronchial asthma ____. 3. Obstructive sleep apnea disorder. PLAN OF MANAGEMENT: No change in the plan of management, except continued gradual reduction of corticosteroids. Continue diuretics. Monitor kidney functions closely. Usual care, other supportive therapy, plan of management and care. INDER CARR MD CM:PNTRANS [id number] INDER OBREGON MD 09/14/17 1704 interface
--- NOTE | ~2017-09-11 | PR ---
[place], [place] PROGRESS NOTE NAME: FANNY AGUILA [facility] #: [id number] UNIT #: [id number] ROOM: 525 DOCTOR: BRUNO OBREGON MD,INDER BIRTHDATE: [birth year] DOS: 09/15/2017 SUBJECTIVE: He has been noted continued reduction and improvement in respiratory symptoms as well as weight loss with a losing water. The patient denies symptoms of chest pain or hemoptysis. Shortness of breath and dizziness. The patient's all symptoms have been improving. OBJECTIVE: VITAL SIGNS: Normal temperature, respiratory rate 16, heart rate 84, blood pressure 134/66, pulse oxygen saturation on room air 93% saturation at rest was noted. HEENT: Chronic obesity. Head was atraumatic. Eyes nonicterus. NECK: Supple. CARDIOVASCULAR: S1, S2 is audible. LUNGS: Without any wheezing or crackles at the present time. ABDOMEN: Soft and obese. EXTREMITIES: The patient noted minimal edema. IMPRESSION: 1. The patient with improvement in overall fluid retention. The patient with improving shortness of breath, resolving exacerbation of bronchial asthma. 2. Obstructive sleep apnea disorder. PLAN OF TREATMENT: The patient was advised to resume his previous inhaler medication, which has not been used regularly as advised from the office visit previously. Discharge planning noted in progress. The patient could be discharged from the pulmonary standpoint with adjustment diuretics per recommendation of Cardiology Services. INDER CARR MD CM:PNTRANS [id number] INDER OBREGON MD 09/16/17 0030 interface
--- NOTE | ~2017-09-11 | PR ---
[place], [place] PROGRESS NOTE [id number] UNIT #: [id number] ROOM: 525 DOCTOR: BRUNO OBREGON MD,INDER BIRTHDATE: [birth year] DOS: 09/13/2017 SUBJECTIVE: The patient noted comfortable at this time without any acute distress. He has not been noted with any changes, still complaining of symptoms of shortness of breath and dizziness upon walking. He has been continued diuretic therapy and was assessed by Dr. Garcia yesterday as well. He has been receiving the corticosteroids and bronchodilators. This morning, the patient was seen sitting on the chair in his room. OBJECTIVE: VITAL SIGNS: Normal temperature, respiratory rate 18, heart rate 79, blood pressure 145/66. Pulse ox saturation on room air 98% saturation. HEENT: Head was atraumatic. Eye nonicterus. NECK: Supple. CARDIOVASCULAR: S1, S2 audible. LUNGS: Noted free of any wheezing or crackles. ABDOMEN: Soft, nontender and obese. EXTREMITIES: Resolving edema. LABORATORY DATA: BMP today: BUN 43, creatinine 1.33, glucose of 266. CBC: Normal WBC count, hemoglobin 11.3. IMPRESSION: The patient fluid overload with symptoms of shortness of breath and wheezing, possible consideration of acute exacerbation of bronchial asthma already treated with the corticosteroids. PLAN OF TREATMENT: Decrease the corticosteroid dose 40 mg daily with continuation of other therapy, plan of management. Usual care, additional treatment changes to be made based on progression of illness. Agree with the diuresis for this patient of the kidney functions to be monitored closely while on the diuretic including electrolytes. INDER CARR MD CM:PNTRANS [id number] INDER OBREGON MD 09/13/17 1459 interface
--- NOTE | ~2017-09-11 | CON ---
[place], [place] REPORT OF CONSULTATION NAME: FANNY AGUILA [facility] #: [id number] UNIT #: [id number] ROOM: 525 DOCTOR: INDER BARRAGAN MD BIRTHDATE: [birth year] DOS: 09/12/2017 PULMONARY CONSULTATION, EVALUATION AND MANAGEMENT CONSULTATION REQUESTED BY: Hospitalist. REASON FOR CONSULTATION: For assessment of shortness of breath. HISTORY OF PRESENT ILLNESS: This is a 62-year-old white male patient who originally seen in my office yesterday as the patient has been noted with gradual increased symptoms of shortness of breath occurring for the past several days. Shortness of breath occurring with walking about 10-20 feet for the patient at a level surface. Also, the patient was noted with passing out sensation. He was noted with some symptoms of cough as well. The patient denies symptoms of active wheezing. The patient was seen by the heel seat flap stapler. The patient was reported with excessive weight gain and edema of the patient about 20+ pounds. He has been started on a strong diuretic per . As the patient was examined in the office. The patient was sent to the Emergency Room for further assessment because of persistent severe shortness of breath, symptoms of dizziness and possible near syncopal episodes as well. He has been assessed in the Emergency Room and currently hospitalized. This morning, the patient was seen sitting on side of the bed, stating with the reduction in symptoms of the patient from yesterday with current medical management. REVIEW OF SYSTEMS: CONSTITUTIONAL: Fatigue and tiredness reported for the patient, which increases with exertion. EYES: Denies any burning, redness, or tenderness. EARS, NOSE, AND THROAT: Denies sore throat, hoarseness, otalgia, postnasal drainage or epistaxis. CARDIOVASCULAR: Denies anginal pain, edema or pain of lower extremities. GASTROINTESTINAL: Denies dysphagia, nausea, vomiting, diarrhea, abdominal pain, hematemesis, melena, or hematochezia. SKIN: There were no abnormal lesions or rashes. MUSCULOSKELETAL: No acute joint pain, redness, or tenderness. SKIN: No lesions or rashes. CENTRAL NERVOUS SYSTEM: The patient noted without any headache, syncopal episode, symptom of dizziness reported with walking. Remaining systems were reviewed, they were noted all negative. PAST MEDICAL HISTORY: 1. Noted mild intermittent bronchial asthma. 2. Type 2 diabetes mellitus. 3. Hypercholesterolemia. 4. Chronic obesity. 5. Gastroesophageal reflux. 6. Essential hypertension. 7. Osteoarthritis. 8. Cervical arthritis of the patient. [place], [place] REPORT OF CONSULTATION NAME: FANNY AGUILA UNIT #: [id number] ROOM: [facility] DOCTOR: INDER BARRAGAN MD BIRTHDATE: [birth year] 9. General anxiety disorder and depression. 10. Restless leg syndrome. 11. Obstructive sleep apnea disorder treated with the CPAP 10 cm of water. 12. Coronary artery disease. PAST SURGICAL HISTORY: 1. Cholecystectomy. 2. Cardiac catheterization. 3. Rotator cuff surgery of the patient on the left side. 4. Cervical fusion and then reexploration surgery of the patient that was done in 2017 in [facility]. 5. Tonsillectomy. SOCIAL HISTORY: The patient is and lives at home. He denies history of alcohol use or any illicit drugs. Tobacco use was noted previously for the patient from age of [age] years old, 5 pack of cigarettes per day for the patient until 1995. FAMILY HISTORY: The patient's father at 75 years old with complication of COPD. Mother at the age of 60 due to complication related to the leukemia. HOME MEDICATIONS: Listed for the patient on admission: Aspirin, ____, vitamin D, Plavix, Farxiga, Colace, Cymbalta, Amaryl, hydroxyzine, Lantus insulin, Imdur SA, lactulose, Victoza, lisinopril, Ativan, metformin, metoprolol tartrate, omeprazole, Percocet, potassium chloride, Lyrica, Crestor, and multivitamins. DRUG ALLERGIES: No known drug allergies. PHYSICAL EXAMINATION: GENERAL: This is a 62-year-old male who has been noted currently sitting on side of bed without any acute distress. Height was noted as 5 feet 11 inches, weight of 270 pounds, BMI 37. VITAL SIGNS: Normal temperature, respiratory rate 16-18, heart rate of 90-85, blood pressure 102/56 to 111/50. Pulse oxygen saturation of the patient on room air 93% saturation at rest. HEENT: Head was atraumatic. Eyes nonicterus. NECK: Supple. CARDIOVASCULAR: S1, S2 audible. LUNGS: Noted moderate decreased breath sounds, scattered expiratory wheezing, no crackles. ABDOMEN: Noted soft and obese. EXTREMITIES: The patient noted without any acute edema. MUSCULOSKELETAL: Noted without any acute deformities or tenderness. CENTRAL NERVOUS SYSTEM: Cranial nerves 2-12 intact. MUSCULOSKELETAL: Without any deformity. SKIN: Visible skin. No lesions or rashes. LABORATORY DATA: Stress testing for the patient that was done 09/07/[address] Ragsdale for the patient with the findings described as a normal stress test. Lactic acid noted yesterday 1.8 on admission. CBC yesterday [place], [place] REPORT OF CONSULTATION NAME: FANNY AGUILA UNIT #: [id number] ROOM: [facility] DOCTOR: SHARON BARRAGAN MDM BIRTHDATE: [birth year] admission, hemoglobin 12. Remaining CBC were normal yesterday. PT/PTT normal yesterday. CMP yesterday, glucose 219, BUN 32, creatinine 1.25. The troponin for the patient was noted as negative, three sets yesterday. CBC this morning, hemoglobin 11.5, otherwise normal CBC. CMP of the patient this morning, BUN 38, creatinine 1.41, glucose 213, sodium 135. Folic acid was normal. Chest x-ray of the patient, 2-view, which was noted as no acute active disease. CT scan of the chest, which was done without contrast for the patient was also reviewed shows tiny nodule 1-2 mm noted on 03/16/2017 for this patient. There were no acute pulmonary infiltration. Change of cirrhosis of the liver were reported in the upper abdominal assessment of the patient by the radiologist. IMPRESSION: 1. The patient who has been currently admitted to the hospital noted with edema of the lower extremity, acute shortness of breath and possibility of congestive heart failure with a combination of acute exacerbation of bronchial asthma very likely. 2. Elevation of creatinine for the patient most likely volume depletion. 3. Type 2 diabetes mellitus. 4. History of osteoarthritis. 5. Obstructive sleep apnea disorder. 6. Steroid-induced hyperglycemia with history of diabetes mellitus as well. PLAN OF MANAGEMENT: 1. Reduce the Solu-Medrol dose to 40 mg b.i.d. Continue bronchodilators and oxygen supplementation if necessary to maintain pulse ox 92% or greater. Reduce the dose of Solu-Medrol to b.i.d. dosing at this time because of mild wheezing. Monitor respiratory status of the patient closely in the next 24 hours. He is symptomatic. The patient with couple of 1-2 mm nodule noted in the right lung. The patient remains unchanged. No further assessment will be necessary. 2. Past history of nicotine abuse. The patient was advised continue abstinence of tobacco use. Continue supportive therapy, plan of management and care plan. Usual treatment. INDER CARR MD CM:CONSTR:REPORT OF CONSULTATION 1127 09/12/17 1520 interface
--- NOTE | ~2017-09-11 | PR ---
[place], [place] PROGRESS NOTE NAME: FANNY AGUILA [facility] #: [id number] UNIT #: [id number] ROOM: 525 DOCTOR: MARY COX MD BIRTHDATE: [birth year] DOS: 09/14/2017 SUBJECTIVE: The patient was seen today, 09/14/2017, at his bedside with his in attendance. He continues to diurese with IV furosemide and continues to feel better. His fluid balance is negative 4250 mL for the last 3 days. He feels much less breathless and is able to ambulate without difficulty. He states that his legs do not feel as swollen and his feet no longer feel like they are going to "split open." PHYSICAL EXAMINATION: VITAL SIGNS: Today his pulse is 86 and regular, blood pressure is 108/48. He is afebrile. He weighs 122.5 kg and has a body mass index of 37.7. NECK: Supple. He has no jugular distention. Carotids are full. LUNGS: Respirations are unlabored. He has decreased breath sounds at the bases, but no wheezes or rales. He has no presacral edema. HEART: Has a regular rhythm with an S4 gallop. There is no rub. The PMI is not displaced. ABDOMEN: Obese, but otherwise benign. EXTREMITIES: Showed 1+ edema of the ankles bilaterally, markedly improved from 2 days ago. LABORATORY DATA: Hemoglobin today is 12.3 with white count of 12,000 and platelet count 170,000. Sodium is 136, potassium 3.6, chloride 96, CO2 of 31, BUN 46, creatinine 1.24. IMPRESSION: 1. Fluid overload. The patient has a history of renal insufficiency, fatty liver, mild diastolic left ventricular dysfunction and obstructive sleep apnea with morbid obesity. Urine microalbumin is mildly elevated, but not to the point where it would cause fluid retention. He does continue to respond nicely to aggressive diuresis. 2. Morbid obesity. 3. Type 2 diabetes mellitus, on insulin. 4. Chronic obstructive pulmonary disease. 5. Fatty liver with cirrhotic changes. PLAN: We will continue aggressive diuresis, but we will switch him from IV furosemide to oral torsemide and continue to watch his renal functions carefully. I thank the hospitalist physicians for asking our advice regarding his care. [place], [place] PROGRESS NOTE NAME: FANNY AGUILA UNIT #: [id number] ROOM: 525 DOCTOR: MARY COX MD BIRTHDATE: [birth year] MARY COX MD CM:PNTRANS [id number] MARY COX MD 09/14/17 1526 interface
[~2017-09-11 14:36] MED LIST changes: -ALDACTONE25 MG PO; -BUMETANIDE2 MG PO; -LYRICA100 M1 PO; -PREDNISONE20 M1 PO; -TORSEMIDE20 MG PO; -VITAMIN D5000 UNIT PO; -VRAYLAR3 MG PO; -ZITHROMAX250 MG PO
[2017-09-11 15:55] LABS: BASO # 0.1 10*3/uL (0.0-0.1); BASO % 0.7 % (0.0-1.0); EOS # 0.2 10*3/uL (0.0-0.4); HEMATOCRIT 38.3 % (42.0-52.0); LYMPH # 2.5 10*3/uL (1.3-4.4); LYMPH % 33.9 % (27.0-41.0); MEAN CELL VOLUME 84.4 fl (80.0-94.0); MEAN CORPUSCULAR HGB 26.4 pg (27.0-31.0); MEAN CORPUSCULAR HGB CONC 31.3 g/dl (33.0-37.0); MEAN PLATELET VOLUME 11.1 fl (9.6-12.3); MONO # 0.8 10*3/uL (0.1-1.0); MONO % 10.5 % (3.0-9.0); NEUT # 3.8 10*3/uL (2.3-7.9); NEUT % 51.5 % (47.0-73.0); PLATELET COUNT AUTOMATED 145 10*3/uL (130-400); RED BLOOD COUNT 4.54 10*6/uL (4.50-5.90); RED CELL DISTRI WIDTH 14.1 % (0-14.5); WHITE BLOOD COUNT 7.3 10*3/uL (4.8-10.8)
[2017-09-11 16:03] LABS: ACT PARTIAL THROMBO TIME 25.1 SECONDS (20.8-31.5); INTERNATIONAL NORM RATIO 1.1 (2.0-3.5)
[2017-09-11 16:11] LABS: ALBUMIN 3.6 gm/dl (3.1-4.5); ALKALINE PHOSPHATASE 60 U/L (45-117); BUN 32 mg/dl (7-24); CHLORIDE 100 mmol/L (98-107); CREATININE 1.25 mg/dL (0.70-1.30); LIPASE 221 U/L (73-393); POTASSIUM 4.5 mmol/L (3.5-5.1); SGOT/AST 68 IU/L (3-35); SGPT/ALT 69 U/L (12-78); SODIUM 136 mmol/L (136-145); TOTAL PROTEIN 8.4 gm/dL (6.4-8.2)
[2017-09-11 16:12] LABS: TROPONIN I < 0.015 ng/ml (<0.045)
[2017-09-11] MEDS ORDERED: LYRICA100 M1 PO (20:18)
[2017-09-12] VITALS: BP 111/50
[2017-09-12 06:00] VITALS: BP 116/58
[2017-09-12 06:55] LABS: BASO % 0.3 % (0.0-1.0); EOS % 0.2 % (1.0-4.0); HEMATOCRIT 36.9 % (42.0-52.0); HEMOGLOBIN 11.5 g/dl (14.0-18.0); LYMPH % 15.9 % (27.0-41.0); MEAN CORPUSCULAR HGB 26.5 pg (27.0-31.0); MEAN CORPUSCULAR HGB CONC 31.2 g/dl (33.0-37.0); MEAN PLATELET VOLUME 11.4 fl (9.6-12.3); MONO # 0.1 10*3/uL (0.1-1.0); NEUT % 80.8 % (47.0-73.0); PLATELET COUNT AUTOMATED 133 10*3/uL (130-400); RED BLOOD COUNT 4.34 10*6/uL (4.50-5.90); WHITE BLOOD COUNT 6.2 10*3/uL (4.8-10.8)
[2017-09-12 07:07] LABS: ALBUMIN 3.3 gm/dl (3.1-4.5); ALKALINE PHOSPHATASE 55 U/L (45-117); BUN 38 mg/dl (7-24); CHLORIDE 99 mmol/L (98-107); CREATININE 1.41 mg/dL (0.70-1.30); SGOT/AST 52 IU/L (3-35); SGPT/ALT 65 U/L (12-78); SODIUM 135 mmol/L (136-145); TOTAL PROTEIN 7.9 gm/dL (6.4-8.2)
[2017-09-12 07:12] LABS: THYROID STIM HORMONE (HS) 0.837 uIU/ml (0.358-4.75)
[2017-09-12 08:00] VITALS: BP 130/77
[2017-09-12] MEDS ORDERED: BUMETANIDE2 MG PO (09:25)
[2017-09-12] MEDS ORDERED: ALDACTONE25 MG PO (09:25)
[2017-09-12] MEDS ORDERED: VRAYLAR3 MG PO (09:28)
[2017-09-12] MEDS ORDERED: VITAMIN D5000 UNIT PO (10:37)
[2017-09-12 12:00] VITALS: BP 142/65
[2017-09-12 15:43] LABS: BILIRUBIN NEGATIVE (NEGATIVE); BLOOD NEGATIVE (NEGATIVE); CLARITY CLEAR (CLEAR); COLOR YELLOW (YELLOW); GLUCOSE 3+ (NEGATIVE); KETONE NEGATIVE (NEGATIVE); LEUKO ESTERASE NEGATIVE (NEGATIVE); NITRITE NEGATIVE (NEGATIVE); PH 5.5 (5.0-9.0); UROBILINOGEN 0.2 E.U./dl (0.2-1.0)
[2017-09-12 16:00] VITALS: BP 133/57
[2017-09-12 16:10] LABS: BACTERIA TRACE
[2017-09-12 16:11] LABS: EPITHELIAL CELLS 0-2; RBC 0-2 rbc/hpf (0-2); WBC 0-2 wbc/hpf (0-5)
[2017-09-12 20:00] VITALS: BP 136/57
[2017-09-13] VITALS: BP 120/60
[2017-09-13 06:24] LABS: BASO % 0.2 % (0.0-1.0); EOS % 0.1 % (1.0-4.0); HEMATOCRIT 37.1 % (42.0-52.0); HEMOGLOBIN 11.3 g/dl (14.0-18.0); LYMPH # 1.7 10*3/uL (1.3-4.4); MEAN CELL VOLUME 85.9 fl (80.0-94.0); MEAN CORPUSCULAR HGB 26.2 pg (27.0-31.0); MEAN CORPUSCULAR HGB CONC 30.5 g/dl (33.0-37.0); MEAN PLATELET VOLUME 11.3 fl (9.6-12.3); MONO % 9.6 % (3.0-9.0); NEUT # 7.8 10*3/uL (2.3-7.9); NEUT % 73.5 % (47.0-73.0); PLATELET COUNT AUTOMATED 146 10*3/uL (130-400); RED BLOOD COUNT 4.32 10*6/uL (4.50-5.90); RED CELL DISTRI WIDTH 14.4 % (0-14.5); WHITE BLOOD COUNT 10.6 10*3/uL (4.8-10.8)
[2017-09-13 06:42] LABS: ALBUMIN 3.4 gm/dl (3.1-4.5); ALKALINE PHOSPHATASE 52 U/L (45-117); BUN 43 mg/dl (7-24); CHLORIDE 97 mmol/L (98-107); CREATININE 1.33 mg/dL (0.70-1.30); POTASSIUM 4.5 mmol/L (3.5-5.1); SGOT/AST 29 IU/L (3-35); SGPT/ALT 53 U/L (12-78); SODIUM 136 mmol/L (136-145); TOTAL PROTEIN 7.7 gm/dL (6.4-8.2)
[2017-09-13 08:00] VITALS: BP 145/66
[2017-09-13 10:04] LABS: CREATININE,URINE 25.1 mg/dL (Not Estab.); MICRO ALBUMIN/CRE RATIO 296.8 (0.0-30.0)
[2017-09-13 12:00] VITALS: BP 143/68
[2017-09-13 16:00] VITALS: BP 125/64
[2017-09-13 20:00] VITALS: BP 108/60
[2017-09-14] VITALS: BP 147/73
[2017-09-14 06:22] LABS: BASO % 0.3 % (0.0-1.0); EOS # 0.1 10*3/uL (0.0-0.4); EOS % 0.8 % (1.0-4.0); HEMOGLOBIN 12.3 g/dl (14.0-18.0); LYMPH % 33.5 % (27.0-41.0); MEAN CELL VOLUME 85.7 fl (80.0-94.0); MEAN CORPUSCULAR HGB 26.3 pg (27.0-31.0); MEAN CORPUSCULAR HGB CONC 30.8 g/dl (33.0-37.0); MEAN PLATELET VOLUME 10.8 fl (9.6-12.3); MONO # 1.3 10*3/uL (0.1-1.0); MONO % 11.2 % (3.0-9.0); NEUT # 6.4 10*3/uL (2.3-7.9); NEUT % 53.7 % (47.0-73.0); PLATELET COUNT AUTOMATED 170 10*3/uL (130-400); RED BLOOD COUNT 4.67 10*6/uL (4.50-5.90); RED CELL DISTRI WIDTH 14.4 % (0-14.5)
[2017-09-14 06:43] LABS: ALBUMIN 3.4 gm/dl (3.1-4.5); BUN 46 mg/dl (7-24); CHLORIDE 96 mmol/L (98-107); CREATININE 1.24 mg/dL (0.70-1.30); POTASSIUM 3.6 mmol/L (3.5-5.1); SGOT/AST 51 IU/L (3-35); SGPT/ALT 58 U/L (12-78); SODIUM 136 mmol/L (136-145)
[2017-09-14 06:47] LABS: ALKALINE PHOSPHATASE 51 U/L (45-117); TOTAL PROTEIN 7.8 gm/dL (6.4-8.2)
[2017-09-14 08:00] VITALS: BP 148/64
[2017-09-14 12:00] VITALS: BP 108/48
[2017-09-14 16:00] VITALS: BP 128/56
[2017-09-14 20:00] VITALS: BP 111/64
[2017-09-15] VITALS: BP 123/96
[2017-09-15 07:27] LABS: BUN 46 mg/dl (7-24); CHLORIDE 97 mmol/L (98-107); CREATININE 1.36 mg/dL (0.70-1.30); SODIUM 138 mmol/L (136-145)
[2017-09-15 08:00] VITALS: BP 120/64
[2017-09-15 12:00] VITALS: BP 107/69
[2017-09-15 16:00] VITALS: BP 134/66
[2017-09-15] MEDS ORDERED: TORSEMIDE20 MG PO (17:38)
== END 2017-09-15 18:16 | disposition home or self-care (01) | DRG 202 ==
LOC: ED 14:36 → EDHOLD 19:43 → 5E 19:43 → EDHOLD 19:43 → 5E 20:00
PROVIDERS: Internal Medicine Cardiovascular Disease; Internal Medicine Hospice and Palliative Medicine; Internal Medicine Nephrology; Nurse Practitioner Family
DX: J45.901 Unspecified asthma with (acute) exacerbation (principal); J44.1 Chronic obstructive pulmonary disease with (acute) exacerbation; E11.22 Type 2 diabetes mellitus with diabetic chronic kidney disease; K74.60 Unspecified cirrhosis of liver; E44.1 Mild protein-calorie malnutrition; Z98.61 Coronary angioplasty status; E11.65 Type 2 diabetes mellitus with hyperglycemia; E87.70 Fluid overload, unspecified; E66.01 Morbid (severe) obesity due to excess calories; D64.9 Anemia, unspecified; G89.29 Other chronic pain; G47.33 Obstructive sleep apnea (adult) (pediatric); K76.0 Fatty (change of) liver, not elsewhere classified; M19.90 Unspecified osteoarthritis, unspecified site; E78.00 Pure hypercholesterolemia, unspecified; K21.9 Gastro-esophageal reflux disease without esophagitis; F41.1 Generalized anxiety disorder; F32.9 Major depressive disorder, single episode, unspecified; I25.10 Atherosclerotic heart disease of native coronary artery without angina pectoris; G25.81 Restless legs syndrome; T38.0X5A Adverse effect of glucocorticoids and synthetic analogues, initial encounter; M54.5 Low back pain; E55.9 Vitamin D deficiency, unspecified; K59.00 Constipation, unspecified; I10 Essential (primary) hypertension; Z79.4 Long term (current) use of insulin; Z79.899 Other long term (current) drug therapy; Z79.82 Long term (current) use of aspirin; I25.2 Old myocardial infarction; Z90.49 Acquired absence of other specified parts of digestive tract; Z98.1 Arthrodesis status; Z90.89 Acquired absence of other organs; Z87.891 Personal history of nicotine dependence; Z82.49 Family history of ischemic heart disease and other diseases of the circulatory system; Z83.3 Family history of diabetes mellitus; Z82.3 Family history of stroke; Z80.8 Family history of malignant neoplasm of other organs or systems; Z83.6 Family history of other diseases of the respiratory system; Z80.6 Family history of leukemia; Y92.89 Other specified places as the place of occurrence of the external cause; Z86.718 Personal history of other venous thrombosis and embolism; Z68.37 Body mass index [BMI] 37.0-37.9, adult

== ENCOUNTER 2017-10-08 14:22 | Inpatient (IN) | payer MEDICARE ==
[~2017-10-08] VITALS: Ht 180.3 cm; Wt 121.6 kg
[2017-10-08] VITALS (7 sets, daily range): BP systolic 116–172; BP diastolic 16–72
--- NOTE | ~2017-10-08 | CON ---
[place], [place] REPORT OF CONSULTATION NAME: FANNY AGUILA UNIT #: [id number] ROOM: 531 DOCTOR: LYDIA GREENE DPM BIRTHDATE: [birth year] DOS: 10/09/2017 SUBJECTIVE: The patient is a 62-year-old male with chief complaint of an ulceration of the right great toe. The patient has a past medical history of elevated CRP, hyperglycemia, hyperkalemia, hypermagnesemia, lactic acidosis, leukopenia, normocytic anemia, peripheral edema, thrombocytopenia, fatigue, general weakness. PAST MEDICAL HISTORY: Including coronary artery disease, cirrhosis of the liver, constipation, type 2 diabetes, history of PA, varicose veins, hypertension, mild protein-calorie malnutrition, morbid obesity, sleep apnea, vitamin D deficiency. PAST SURGICAL HISTORY: Cardiac catheterization, cervical spinal surgery, removal of cervical vertebrae, cholecystectomy, tonsillectomy, varicose vein stripping. SOCIAL HISTORY: Quit smoking more than 20 years ago. Previously smoked up to 5 packs daily for 30 years. Denies illicit drug use. Consumes alcohol occasionally. FAMILY HISTORY: Mother of [place], father at age 75 of PA. ALLERGIES: Denies. PHYSICAL EXAMINATION: EXTREMITIES: Lower extremity examination: Pedal pulses diminished bilateral. Nonpalpable left lower extremity. Decreased skin temperature and hair growth. There is a fissure to the plantar aspect of the right hallux with a full thickness fissure/ulceration noted. No signs of fluctuance. No signs of cellulitis or drainage. Elongated, thickened nails, bilateral foot. ASSESSMENT: Diabetes, peripheral vascular disease, ulceration, plantar right hallux. PLAN: Evaluation and management. Ordered Bactroban dressing to the right hallux daily. Ordered arterial Doppler of bilateral lower extremity. We will perform nail debridement and debridement of the right hallux after the testing is performed and we will discuss with the patient intermodal dispatcher treatment including offloading of the hallux with diabetic shoes and insoles to prevent recurrent pressure.. [place], [place] REPORT OF CONSULTATION NAME: FANNY AGUILA UNIT #: [id number] ROOM: 531 DOCTOR: LYDIA GREENE DPM BIRTHDATE: [birth year] LYDIA GREENE DPM CM:CONSTR:REPORT OF CONSULTATION 1211 10/24/17 0745 interface
[~2017-10-08 14:22] MED LIST changes: +ALDACTONE25 MG PO; +BUMETANIDE2 MG PO; +LYRICA100 M1 PO; +TORSEMIDE20 MG PO; +VITAMIN D5000 UNIT PO; +VRAYLAR3 MG PO
[2017-10-08 15:05] LABS: BASO % 0.5 % (0.0-1.0); EOS # 0.2 10*3/uL (0.0-0.4); EOS % 5.1 % (1.0-4.0); HEMATOCRIT 31.9 % (42.0-52.0); HEMOGLOBIN 9.9 g/dl (14.0-18.0); LYMPH # 1.5 10*3/uL (1.3-4.4); LYMPH % 36.6 % (27.0-41.0); MEAN CELL VOLUME 84.8 fl (80.0-94.0); MEAN CORPUSCULAR HGB 26.3 pg (27.0-31.0); MEAN PLATELET VOLUME 11.7 fl (9.6-12.3); MONO # 0.4 10*3/uL (0.1-1.0); MONO % 9.6 % (3.0-9.0); NEUT # 1.9 10*3/uL (2.3-7.9); NEUT % 47.7 % (47.0-73.0); PLATELET COUNT AUTOMATED 110 10*3/uL (130-400); RED BLOOD COUNT 3.76 10*6/uL (4.50-5.90); RED CELL DISTRI WIDTH 14.6 % (0-14.5)
[2017-10-08 15:14] LABS: ACT PARTIAL THROMBO TIME 25.5 SECONDS (20.8-31.5); INTERNATIONAL NORM RATIO 1.1 (2.0-3.5)
[2017-10-08 15:23] LABS: ALBUMIN 3.2 gm/dl (3.1-4.5); ALKALINE PHOSPHATASE 48 U/L (45-117); BUN 30 mg/dl (7-24); CHLORIDE 101 mmol/L (98-107); CREATININE 1.35 mg/dL (0.70-1.30); LIPASE 304 U/L (73-393); POTASSIUM 5.3 mmol/L (3.5-5.1); SGOT/AST 34 IU/L (3-35); SGPT/ALT 53 U/L (12-78); SODIUM 136 mmol/L (136-145); TOTAL PROTEIN 7.1 gm/dL (6.4-8.2)
[2017-10-08 15:28] LABS: TROPONIN I < 0.015 ng/ml (<0.045)
[2017-10-08] MEDS ORDERED: REQUIP0.5 MG PO (19:26)
[2017-10-08] MEDS ORDERED: TORSEMIDE20 MG PO (19:48)
[2017-10-09] VITALS: BP 125/56
[2017-10-09 06:09] LABS: BASO % 0.8 % (0.0-1.0); EOS # 0.2 10*3/uL (0.0-0.4); EOS % 4.3 % (1.0-4.0); HEMATOCRIT 34.8 % (42.0-52.0); HEMOGLOBIN 10.4 g/dl (14.0-18.0); LYMPH % 37.9 % (27.0-41.0); MEAN CELL VOLUME 86.1 fl (80.0-94.0); MEAN CORPUSCULAR HGB 25.7 pg (27.0-31.0); MEAN CORPUSCULAR HGB CONC 29.9 g/dl (33.0-37.0); MEAN PLATELET VOLUME 10.9 fl (9.6-12.3); MONO # 0.6 10*3/uL (0.1-1.0); MONO % 11.1 % (3.0-9.0); NEUT # 2.3 10*3/uL (2.3-7.9); NEUT % 45.3 % (47.0-73.0); PLATELET COUNT AUTOMATED 116 10*3/uL (130-400); RED BLOOD COUNT 4.04 10*6/uL (4.50-5.90); RED CELL DISTRI WIDTH 14.6 % (0-14.5); WHITE BLOOD COUNT 5.2 10*3/uL (4.8-10.8)
[2017-10-09 06:44] LABS: ALBUMIN 3.3 gm/dl (3.1-4.5); ALKALINE PHOSPHATASE 47 U/L (45-117); BUN 26 mg/dl (7-24); CHLORIDE 105 mmol/L (98-107); CHOLESTEROL 111 mg/dL (<200); CREATININE 1.08 mg/dL (0.70-1.30); FREE T4 0.87 ng/dl (0.76-1.46); HDL CHOLESTEROL 45 mg/dl (40-60); LDL CHOLESTEROL 36 mg/dL (9-159); PHOSPHOROUS 4.7 mg/dL (2.5-4.9); POTASSIUM 4.4 mmol/L (3.5-5.1); SGOT/AST 36 IU/L (3-35); SGPT/ALT 52 U/L (12-78); SODIUM 145 mmol/L (136-145); TOTAL PROTEIN 7.5 gm/dL (6.4-8.2); TRIGLYCERIDES 150 mg/dl (<150); VLDL CHOLESTEROL 30 mg/dL (6-40)
[2017-10-09 08:00] VITALS: BP 113/46
[2017-10-09 12:00] VITALS: BP 101/63
[2017-10-09 16:00] VITALS: BP 115/52
[2017-10-09 20:00] VITALS: BP 109/58
[2017-10-10] VITALS: BP 115/65
[2017-10-10 06:45] LABS: BASO # 0.1 10*3/uL (0.0-0.1); BASO % 0.8 % (0.0-1.0); EOS # 0.2 10*3/uL (0.0-0.4); EOS % 3.7 % (1.0-4.0); HEMATOCRIT 35.5 % (42.0-52.0); HEMOGLOBIN 10.6 g/dl (14.0-18.0); LYMPH # 2.3 10*3/uL (1.3-4.4); MEAN CORPUSCULAR HGB CONC 29.9 g/dl (33.0-37.0); MEAN PLATELET VOLUME 11.1 fl (9.6-12.3); MONO # 0.7 10*3/uL (0.1-1.0); MONO % 10.4 % (3.0-9.0); NEUT # 3.1 10*3/uL (2.3-7.9); NEUT % 48.6 % (47.0-73.0); PLATELET COUNT AUTOMATED 134 10*3/uL (130-400); RED BLOOD COUNT 4.08 10*6/uL (4.50-5.90); RED CELL DISTRI WIDTH 15.1 % (0-14.5); WHITE BLOOD COUNT 6.5 10*3/uL (4.8-10.8)
[2017-10-10 06:58] LABS: BUN 25 mg/dl (7-24); CHLORIDE 101 mmol/L (98-107); CREATININE 1.12 mg/dL (0.70-1.30); POTASSIUM 4.1 mmol/L (3.5-5.1); SODIUM 140 mmol/L (136-145)
[2017-10-10 08:00] VITALS: BP 137/64
[2017-10-10] MEDS ORDERED: ZITHROMAX250 MG PO (11:28)
[2017-10-10] MEDS ORDERED: PREDNISONE20 M1 PO (11:28)
[2017-11-02] MEDS ORDERED: VITAMIN D5000 UNI1 PO (20:45)
[2017-11-02] MEDS ORDERED: COMPLETE SENIO1 EACH PO (20:51)
[2017-11-02] MEDS ORDERED: LANTUS SOL100 UNIT/1 SQ (21:41)
[2017-11-02] MEDS ORDERED: VICTOZA 2-0.6 MG/0.1 SC (21:42)
[2017-11-04] MEDS ORDERED: BUMETANIDE1 MG PO (10:55)
[2017-11-04] MEDS ORDERED: KLOR-CON M1010 ME1 PO (10:56)
== END 2017-10-10 12:25 | disposition home health service (06) | DRG 291 ==
LOC: ED 14:22 → EDHOLD 16:17 → 5E 16:17
PROVIDERS: Emergency Medicine; Family Medicine
DX: I50.31 Acute diastolic (congestive) heart failure (principal); E11.00 Type 2 diabetes mellitus with hyperosmolarity without nonketotic hyperglycemic-hyperosmolar coma (NKHHC); E87.2 Acidosis; D69.6 Thrombocytopenia, unspecified; E11.51 Type 2 diabetes mellitus with diabetic peripheral angiopathy without gangrene; E11.622 Type 2 diabetes mellitus with other skin ulcer; E11.65 Type 2 diabetes mellitus with hyperglycemia; E44.1 Mild protein-calorie malnutrition; J44.1 Chronic obstructive pulmonary disease with (acute) exacerbation; L97.419 Non-pressure chronic ulcer of right heel and midfoot with unspecified severity; E66.01 Morbid (severe) obesity due to excess calories; K74.60 Unspecified cirrhosis of liver; E87.5 Hyperkalemia; R53.83 Other fatigue; D72.819 Decreased white blood cell count, unspecified; D64.9 Anemia, unspecified; E55.9 Vitamin D deficiency, unspecified; K59.00 Constipation, unspecified; I25.10 Atherosclerotic heart disease of native coronary artery without angina pectoris; R79.82 Elevated C-reactive protein (CRP); R74.0 Nonspecific elevation of levels of transaminase and lactic acid dehydrogenase [LDH]; I11.0 Hypertensive heart disease with heart failure; Z79.4 Long term (current) use of insulin; G47.30 Sleep apnea, unspecified; Z90.49 Acquired absence of other specified parts of digestive tract; Z98.1 Arthrodesis status; Z90.89 Acquired absence of other organs; Z87.891 Personal history of nicotine dependence; I25.2 Old myocardial infarction; Z82.49 Family history of ischemic heart disease and other diseases of the circulatory system; Z80.0 Family history of malignant neoplasm of digestive organs; Z79.899 Other long term (current) drug therapy; Z79.82 Long term (current) use of aspirin; Z68.38 Body mass index [BMI] 38.0-38.9, adult; Z83.3 Family history of diabetes mellitus

== ENCOUNTER → 2017-10-22 | Outpatient (CLI) | payer MEDICARE ==
[~2017-10-22] MED LIST changes: +BUMETANIDE1 MG PO; +COMPLETE SENIO1 EACH PO; +KLOR-CON M1010 ME1 PO; +LANTUS SOL100 UNIT/1 SQ; +PREDNISONE20 M1 PO; +VITAMIN D5000 UNI1 PO; +ZITHROMAX250 MG PO
== END | disposition home or self-care (01) ==
LOC: WOUNDCARE 04:29
DX: E11.621 Type 2 diabetes mellitus with foot ulcer (principal); L97.511 Non-pressure chronic ulcer of other part of right foot limited to breakdown of skin; L84 Corns and callosities; E11.40 Type 2 diabetes mellitus with diabetic neuropathy, unspecified; E66.01 Morbid (severe) obesity due to excess calories; I10 Essential (primary) hypertension; G47.30 Sleep apnea, unspecified; K74.60 Unspecified cirrhosis of liver; Z68.37 Body mass index [BMI] 37.0-37.9, adult; Z79.4 Long term (current) use of insulin; Z87.891 Personal history of nicotine dependence; Z90.49 Acquired absence of other specified parts of digestive tract; Z79.82 Long term (current) use of aspirin

== ENCOUNTER → 2017-10-29 | Outpatient (CLI) | payer MEDICARE | END | disposition home or self-care (01) | LOC: WOUNDCARE 00:49 | DX: E11.621 Type 2 diabetes mellitus with foot ulcer (principal); L97.518 Non-pressure chronic ulcer of other part of right foot with other specified severity; L84 Corns and callosities; E11.40 Type 2 diabetes mellitus with diabetic neuropathy, unspecified; E66.01 Morbid (severe) obesity due to excess calories; G47.30 Sleep apnea, unspecified; I10 Essential (primary) hypertension; K74.60 Unspecified cirrhosis of liver; Z87.891 Personal history of nicotine dependence; Z90.49 Acquired absence of other specified parts of digestive tract ==

== ENCOUNTER → 2017-11-26 | Outpatient (CLI) | payer MEDICARE, MEDICAID | END | disposition home or self-care (01) | LOC: WOUNDCARE 05:22 | DX: E11.621 Type 2 diabetes mellitus with foot ulcer (principal); L97.521 Non-pressure chronic ulcer of other part of left foot limited to breakdown of skin; L97.511 Non-pressure chronic ulcer of other part of right foot limited to breakdown of skin; E11.40 Type 2 diabetes mellitus with diabetic neuropathy, unspecified; E55.9 Vitamin D deficiency, unspecified; I10 Essential (primary) hypertension; E66.01 Morbid (severe) obesity due to excess calories; G47.30 Sleep apnea, unspecified; Z87.891 Personal history of nicotine dependence; Z68.37 Body mass index [BMI] 37.0-37.9, adult ==

== ENCOUNTER → 2017-12-04 | Outpatient (CLI) | payer MEDICARE, MEDICAID | END | disposition home or self-care (01) | LOC: WOUNDCARE 11-30 10:18 | DX: E11.621 Type 2 diabetes mellitus with foot ulcer (principal); L97.521 Non-pressure chronic ulcer of other part of left foot limited to breakdown of skin; L97.511 Non-pressure chronic ulcer of other part of right foot limited to breakdown of skin; E11.40 Type 2 diabetes mellitus with diabetic neuropathy, unspecified; E55.9 Vitamin D deficiency, unspecified; I10 Essential (primary) hypertension; G47.30 Sleep apnea, unspecified; E66.01 Morbid (severe) obesity due to excess calories; Z68.37 Body mass index [BMI] 37.0-37.9, adult; Z87.891 Personal history of nicotine dependence ==

== ENCOUNTER → 2018-02-25 | Outpatient (CLI) | payer MEDICARE, MEDICAID ==
[2018-02-25 11:13] LABS: ALBUMIN 3.6 gm/dl (3.1-4.5); ALKALINE PHOSPHATASE 49 U/L (45-117); BILIRUBIN, DIRECT 0.2 mg/dL (0.0-0.2); BUN 24 mg/dl (7-24); CHLORIDE 100 mmol/L (98-107); CHOLESTEROL 111 mg/dL (<200); CREATININE 1.18 mg/dL (0.70-1.30); HDL CHOLESTEROL 45 mg/dl (40-60); LDL CHOLESTEROL 26 mg/dL (9-159); POTASSIUM 3.8 mmol/L (3.5-5.1); SGOT/AST 42 IU/L (3-35); SGPT/ALT 43 U/L (12-78); SODIUM 136 mmol/L (136-145); TOTAL PROTEIN 7.8 gm/dL (6.4-8.2); TRIGLYCERIDES 200 mg/dl (<150); VLDL CHOLESTEROL 40 mg/dL (6-40)
[2018-02-25 13:53] LABS: BILIRUBIN NEGATIVE (NEGATIVE); BLOOD NEGATIVE (NEGATIVE); CLARITY CLEAR (CLEAR); COLOR YELLOW (YELLOW); GLUCOSE 3+ (NEGATIVE); KETONE NEGATIVE (NEGATIVE); LEUKO ESTERASE NEGATIVE (NEGATIVE); NITRITE NEGATIVE (NEGATIVE); PH 6.5 (5.0-9.0); UROBILINOGEN 0.2 E.U./dl (0.2-1.0)
== END | disposition home or self-care (01) ==
LOC: LAB 10:17
PROVIDERS: Internal Medicine
DX: E78.5 Hyperlipidemia, unspecified (principal); E11.9 Type 2 diabetes mellitus without complications; E55.9 Vitamin D deficiency, unspecified

== ENCOUNTER → 2018-03-15 | Outpatient (CLI) | payer MEDICARE, MEDICAID ==
[~2018-03-15] MED LIST changes: +ACULAR 5 ML5 M1 OPH; +BUMEX2.5 MG/10 IV; +BUSPIRONE HCL7.5 MG PO; +DOC-Q-LACE100 MG PO; +FLOVENT HFA10.6 GM IH; +JARDIANCE10 MG PO; +LOTEMAX5 GM OP; -LYRICA100 M1 PO; +LYRICA25 M1 PO; +METFORMIN HCL500 M3 PO; +MIRTAZAPINE15 M2 PO; +NOVOLOG MI100 UNIT/1 SQ; +POTASSIUM CHLO20 ME4 PO; +PROZAC20 MG PO; +Percocet 325 MG1 TAB PO; +RIVASTIGMINE1 EACH T; +SYMPROIC0.2 MG PO; +TRULICITY1.5 MG/0.5 SC; +VRAYLAR4.5 MG PO
== END | disposition home or self-care (01) ==
LOC: WOUNDCARE 08:26
DX: E11.621 Type 2 diabetes mellitus with foot ulcer (principal); L97.512 Non-pressure chronic ulcer of other part of right foot with fat layer exposed; E11.42 Type 2 diabetes mellitus with diabetic polyneuropathy; I11.0 Hypertensive heart disease with heart failure; I50.9 Heart failure, unspecified; E55.9 Vitamin D deficiency, unspecified; E66.01 Morbid (severe) obesity due to excess calories; G47.30 Sleep apnea, unspecified; Z87.891 Personal history of nicotine dependence; Z90.49 Acquired absence of other specified parts of digestive tract

== ENCOUNTER → 2018-03-22 | Outpatient (CLI) | payer MEDICARE, MEDICAID ==
[~2018-03-22] MED LIST changes: -ACULAR 5 ML5 M1 OPH; -BUMEX2.5 MG/10 IV; -BUSPIRONE HCL7.5 MG PO; -DOC-Q-LACE100 MG PO; -FLOVENT HFA10.6 GM IH; -JARDIANCE10 MG PO; -LOTEMAX5 GM OP; +LYRICA100 M1 PO; -LYRICA25 M1 PO; -METFORMIN HCL500 M3 PO; -MIRTAZAPINE15 M2 PO; -NOVOLOG MI100 UNIT/1 SQ; -POTASSIUM CHLO20 ME4 PO; -PROZAC20 MG PO; -Percocet 325 MG1 TAB PO; -RIVASTIGMINE1 EACH T; -SYMPROIC0.2 MG PO; -TRULICITY1.5 MG/0.5 SC; -VRAYLAR4.5 MG PO
== END | disposition home or self-care (01) ==
LOC: WOUNDCARE 01:33
DX: E11.621 Type 2 diabetes mellitus with foot ulcer (principal); L97.512 Non-pressure chronic ulcer of other part of right foot with fat layer exposed; L84 Corns and callosities; A49.02 Methicillin resistant Staphylococcus aureus infection, unspecified site; I10 Essential (primary) hypertension; E55.9 Vitamin D deficiency, unspecified; G47.30 Sleep apnea, unspecified; E66.01 Morbid (severe) obesity due to excess calories; Z87.891 Personal history of nicotine dependence; Z68.37 Body mass index [BMI] 37.0-37.9, adult

== ENCOUNTER → 2018-03-29 | Outpatient (CLI) | payer MEDICARE, MEDICAID | END | disposition home or self-care (01) | LOC: WOUNDCARE 04:02 | DX: E11.621 Type 2 diabetes mellitus with foot ulcer (principal); L97.512 Non-pressure chronic ulcer of other part of right foot with fat layer exposed; L84 Corns and callosities; E11.42 Type 2 diabetes mellitus with diabetic polyneuropathy; I10 Essential (primary) hypertension; A49.02 Methicillin resistant Staphylococcus aureus infection, unspecified site; E55.9 Vitamin D deficiency, unspecified; G47.30 Sleep apnea, unspecified; E66.9 Obesity, unspecified; Z87.891 Personal history of nicotine dependence; Z68.37 Body mass index [BMI] 37.0-37.9, adult ==

== ENCOUNTER → 2018-04-05 | Outpatient (CLI) | payer MEDICARE, MEDICAID ==
[~2018-04-05] MED LIST changes: +ACULAR 5 ML5 M1 OPH; +BUMEX2.5 MG/10 IV; +BUSPIRONE HCL7.5 MG PO; +DOC-Q-LACE100 MG PO; +FLOVENT HFA10.6 GM IH; +JARDIANCE10 MG PO; +LOTEMAX5 GM OP; -LYRICA100 M1 PO; +LYRICA25 M1 PO; +METFORMIN HCL500 M3 PO; +MIRTAZAPINE15 M2 PO; +NOVOLOG MI100 UNIT/1 SQ; +POTASSIUM CHLO20 ME4 PO; +PROZAC20 MG PO; +Percocet 325 MG1 TAB PO; +RIVASTIGMINE1 EACH T; +SYMPROIC0.2 MG PO; +TRULICITY1.5 MG/0.5 SC; +VRAYLAR4.5 MG PO
== END | disposition home or self-care (01) ==
LOC: WOUNDCARE 02:03
DX: E11.621 Type 2 diabetes mellitus with foot ulcer (principal); L97.512 Non-pressure chronic ulcer of other part of right foot with fat layer exposed; L84 Corns and callosities; E11.42 Type 2 diabetes mellitus with diabetic polyneuropathy; A49.02 Methicillin resistant Staphylococcus aureus infection, unspecified site; I10 Essential (primary) hypertension; E55.9 Vitamin D deficiency, unspecified; E66.9 Obesity, unspecified; G47.30 Sleep apnea, unspecified; Z87.891 Personal history of nicotine dependence; Z68.37 Body mass index [BMI] 37.0-37.9, adult

== ENCOUNTER → 2018-04-12 | Outpatient (CLI) | payer MEDICARE, MEDICAID ==
[~2018-04-12] MED LIST changes: -ACULAR 5 ML5 M1 OPH; -BUMEX2.5 MG/10 IV; -BUSPIRONE HCL7.5 MG PO; -DOC-Q-LACE100 MG PO; -FLOVENT HFA10.6 GM IH; -JARDIANCE10 MG PO; -LOTEMAX5 GM OP; +LYRICA100 M1 PO; -LYRICA25 M1 PO; -METFORMIN HCL500 M3 PO; -MIRTAZAPINE15 M2 PO; -NOVOLOG MI100 UNIT/1 SQ; -POTASSIUM CHLO20 ME4 PO; -PROZAC20 MG PO; -Percocet 325 MG1 TAB PO; -RIVASTIGMINE1 EACH T; -SYMPROIC0.2 MG PO; -TRULICITY1.5 MG/0.5 SC; -VRAYLAR4.5 MG PO
== END | disposition home or self-care (01) ==
LOC: WOUNDCARE 05:06
DX: E11.621 Type 2 diabetes mellitus with foot ulcer (principal); L97.512 Non-pressure chronic ulcer of other part of right foot with fat layer exposed; L84 Corns and callosities; E11.42 Type 2 diabetes mellitus with diabetic polyneuropathy; A49.02 Methicillin resistant Staphylococcus aureus infection, unspecified site; I10 Essential (primary) hypertension; E55.9 Vitamin D deficiency, unspecified; E66.01 Morbid (severe) obesity due to excess calories; G47.30 Sleep apnea, unspecified; Z87.891 Personal history of nicotine dependence; Z68.37 Body mass index [BMI] 37.0-37.9, adult

== ENCOUNTER → 2018-05-04 | Outpatient (CLI) | payer MEDICARE ==
[~2018-05-04] MED LIST changes: +ACULAR 5 ML5 M1 OPH; +BUMEX2.5 MG/10 IV; +BUSPIRONE HCL7.5 MG PO; +DOC-Q-LACE100 MG PO; +FLOVENT HFA10.6 GM IH; +JARDIANCE10 MG PO; +LOTEMAX5 GM OP; -LYRICA100 M1 PO; +LYRICA25 M1 PO; +METFORMIN HCL500 M3 PO; +MIRTAZAPINE15 M2 PO; +NOVOLOG MI100 UNIT/1 SQ; +POTASSIUM CHLO20 ME4 PO; +PROZAC20 MG PO; +Percocet 325 MG1 TAB PO; +RIVASTIGMINE1 EACH T; +SYMPROIC0.2 MG PO; +TRULICITY1.5 MG/0.5 SC; +VRAYLAR4.5 MG PO
[2018-05-04 11:02] LABS: BILIRUBIN NEGATIVE (NEGATIVE); BLOOD NEGATIVE (NEGATIVE); CLARITY CLEAR (CLEAR); COLOR YELLOW (YELLOW); GLUCOSE 3+ (NEGATIVE); KETONE NEGATIVE (NEGATIVE); LEUKO ESTERASE NEGATIVE (NEGATIVE); NITRITE NEGATIVE (NEGATIVE); SPECIFIC GRAVITY 1.025 (1.005-1.030); UROBILINOGEN 0.2 E.U./dl (0.2-1.0)
[2018-05-04 11:34] LABS: ALBUMIN 3.5 gm/dl (3.1-4.5); BILIRUBIN, DIRECT 0.1 mg/dL (0.0-0.2); BUN 27 mg/dl (7-24); CHLORIDE 100 mmol/L (98-107); CHOLESTEROL 109 mg/dL (<200); HDL CHOLESTEROL 50 mg/dl (40-60); LDL CHOLESTEROL 33 mg/dL (9-159); SGOT/AST 42 IU/L (3-35); SODIUM 141 mmol/L (136-145); TRIGLYCERIDES 132 mg/dl (<150); VLDL CHOLESTEROL 26 mg/dL (6-40)
[2018-05-04 11:41] LABS: ALKALINE PHOSPHATASE 44 U/L (45-117); CREATININE 1.31 mg/dL (0.70-1.30); FREE T4 0.83 ng/dl (0.76-1.46); SGPT/ALT 48 U/L (12-78)
[2018-05-04 13:39] LABS: VITAMIN D, 25-HYDROXY 49.6 ng/mL (30-100)
== END | disposition home or self-care (01) ==
LOC: LAB 10:30
PROVIDERS: Internal Medicine
DX: E55.9 Vitamin D deficiency, unspecified (principal); E11.40 Type 2 diabetes mellitus with diabetic neuropathy, unspecified; E04.9 Nontoxic goiter, unspecified; R97.20 Elevated prostate specific antigen [PSA]; E29.1 Testicular hypofunction

== ENCOUNTER 2018-09-19 20:21 | Inpatient (IN) | payer MEDICARE, MEDICAID ==
[~2018-09-19] VITALS: Ht 175.3 cm; Wt 117.3 kg
--- NOTE | ~2018-09-19 | EKG ---
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
--- NOTE | ~2018-09-19 | CON ---
[place], [place] REPORT OF CONSULTATION NAME: FANNY GAUILA UNIT #: [id number] ROOM: 405 DOCTOR: ROSMERY DORADO MD BIRTHDATE: [birth year] DOS: 09/20/2018 CARDIOLOGY CONSULTATION REASON FOR CONSULTATION: CHF. HISTORY OF PRESENT ILLNESS: The patient is a 63-year-old patient with history of chronic diastolic heart failure, coronary artery disease, COPD, hypertension, sleep apnea, came for the shortness of breath as well as lower extremity edema. He denies any PND or orthopnea, no fever and chills, no cough, no chest pain, no palpitations or dizziness. No neurologic symptoms. Cardiology consulted for his CHF. REVIEW OF SYSTEMS: Review of 10 systems negative except his progressive shortness of breath and lower extremity edema. The patient is compliant with his medications. PAST MEDICAL HISTORY: 1. Chronic diastolic heart failure. 2. CAD, status post PCI to the circumflex artery. 3. Thrombocytopenia. 4. COPD. 5. Hypertension. 6. Obstructive sleep apnea. 7. Non-morbid obesity. 8. Diabetes type 2. 9. Chronic kidney disease. PAST SURGICAL HISTORY: History of cardiac stents, history of cervical spine surgery, history of cholecystectomy, history of tonsillectomy. SOCIAL HISTORY: The patient is a former smoker. Currently, he does not smoke, does not drink, does not use illicit drugs. FAMILY HISTORY: Father from cancer. Mother from heart attack. ALLERGIES: Reviewed. HOME MEDICATIONS: Reviewed. PHYSICAL EXAMINATION: VITAL SIGNS: Blood pressure 129/70, pulse 60, respiratory rate 18, weight 119 kilos, BMI 38.8. GENERAL: Alert, comfortable, in no acute distress. HEENT: Pupils are round and equal. Tongue was moist and pharynx clear. NECK: Supple, no distended neck veins, no carotid bruit. CHEST: Symmetrical, nontender. LUNGS: Few scattered rhonchi, but good air entry bilaterally. HEART: Regular rhythm, no S3. Grade 1/6 systolic murmur at the right sternal [place], [place] REPORT OF CONSULTATION NAME: FANNY AGUILA UNIT #: [id number] ROOM: 405 DOCTOR: ROSMERY DORADO MD BIRTHDATE: [birth year] [address]. ABDOMEN: Obese, nontender. EXTREMITIES: Showed 1+ edema. Distal pulses palpable. SKIN: Warm and dry. No cyanosis, no clubbing. RECTAL: Deferred. GENITOURINARY: Deferred. REVIEW OF THE DIAGNOSTIC TESTS: EKG, labs, and imaging studies reviewed. Echo from 07/2018 showed EF of 60%. Stress test on 08/2017, nonischemic. IMPRESSION: 1. Besir-id-jpyefsc heart failure with preserved ejection fraction. 2. Sinus bradycardia, asymptomatic. 3. Coronary artery disease, status post PCI to the circumflex. 4. Hypertension. 5. Non-morbid obesity. 6. Diabetes type 2. 7. Thrombocytopenia. RECOMMENDATIONS: 1. Continue Bumex next 24-48 hours. 2. Continue rest of the medications. 3. If the patient does not respond to Bumex, I would consider adding Zaroxolyn in addition to his Bumex and discontinue Aldactone. 4. Home in 24-48 hours. 5. No further cardiac testing. 6. Compliance with medications and diet was discussed. Above recommendation discussed with the patient and his and all their questions were answered. Consider outpatient CHF Clinic referral in [place]. ROSMERY DORADO MD CM:CONSTR:REPORT OF CONSULTATION 26 09/21/18 0120 interface
--- NOTE | ~2018-09-19 | EKG ---
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
--- NOTE | ~2018-09-19 | EKG ---
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
--- NOTE | ~2018-09-19 | EKG ---
[place], [place] ELECTROCARDIOGRAM REPORT NAME: FANNY AGUILA UNIT #: [id number] ROOM: 405 DOCTOR: JULIANN DRAFT REPORT BIRTHDATE: [birth year] [facility] Test Date: 2018-09-20 Test Time: 08:02:53 Pat Name: FANNY AGUILA Department: Room: 405 Gender: M Head Of Music: PETE : 1955 Requested By: PETE RICO Order Number: [id number] Reading MD: Mario Bustos Measurements Intervals [place] Rate: 58 P: 44 MI: 169 QRS: 23 QRSD: 99 T: 46 QT: 469 QTc: 461 Interpretive Statements Sinus rhythm Baseline wander in lead(s) V4 Compared to ECG 07/03/2018 18:39:39 No significant changes Electronically Signed On 09-20-2018 8:45:37 PDT by Mario Bustos CM:EKGRPT:ELECTROCARDIOGRAM REPORT 0845 PETE MANCILLA DRAFT REPORT PETE RICO DO
[~2018-09-19 20:21] MED LIST changes: -ACULAR 5 ML5 M1 OPH; -BUMEX2.5 MG/10 IV; -BUSPIRONE HCL7.5 MG PO; -LOTEMAX5 GM OP; -LYRICA25 M1 PO; -MIRTAZAPINE15 M2 PO; -PROZAC20 MG PO; -RIVASTIGMINE1 EACH T; -TRULICITY1.5 MG/0.5 SC
[2018-09-19 20:23] VITALS: BP 147/62
[2018-09-19 20:42] LABS: BASO # 0.1 10*3/uL (0.0-0.1); BASO % 0.9 % (0.0-1.0); EOS # 0.2 10*3/uL (0.0-0.4); EOS % 2.8 % (1.0-4.0); HEMATOCRIT 41.3 % (42.0-52.0); HEMOGLOBIN 12.7 g/dl (14.0-18.0); LYMPH # 2.4 10*3/uL (1.3-4.4); MEAN CELL VOLUME 86.8 fl (80.0-94.0); MEAN CORPUSCULAR HGB 26.7 pg (27.0-31.0); MEAN CORPUSCULAR HGB CONC 30.8 g/dl (33.0-37.0); MEAN PLATELET VOLUME 11.5 fl (9.6-12.3); MONO # 0.7 10*3/uL (0.1-1.0); MONO % 10.6 % (3.0-9.0); NEUT # 3.3 10*3/uL (2.3-7.9); NEUT % 49.1 % (47.0-73.0); PLATELET COUNT AUTOMATED 122 10*3/uL (130-400); RED BLOOD COUNT 4.76 10*6/uL (4.50-5.90); RED CELL DISTRI WIDTH 14.1 % (0-14.5); WHITE BLOOD COUNT 6.7 10*3/uL (4.8-10.8)
[2018-09-19 20:54] LABS: ACT PARTIAL THROMBO TIME 23.6 SECONDS (20.0-32.1)
[2018-09-19 21:00] LABS: ALBUMIN 3.7 gm/dl (3.1-4.5); ALKALINE PHOSPHATASE 46 U/L (45-117); BUN 27 mg/dl (7-24); CHLORIDE 103 mmol/L (98-107); CREATININE 1.49 mg/dL (0.70-1.30); POTASSIUM 4.7 mmol/L (3.5-5.1); SGOT/AST 31 IU/L (3-35); SGPT/ALT 48 U/L (12-78); SODIUM 142 mmol/L (136-145); TOTAL PROTEIN 8.3 gm/dL (6.4-8.2)
[2018-09-19 21:01] LABS: TROPONIN I < 0.015 ng/ml (<0.045)
[2018-09-20] VITALS (11 sets, daily range): BP systolic 102–165; BP diastolic 44–80
[2018-09-20 06:21] LABS: BASO % 0.6 % (0.0-1.0); EOS # 0.2 10*3/uL (0.0-0.4); EOS % 2.2 % (1.0-4.0); HEMATOCRIT 38.4 % (42.0-52.0); HEMOGLOBIN 11.6 g/dl (14.0-18.0); LYMPH # 2.1 10*3/uL (1.3-4.4); LYMPH % 30.9 % (27.0-41.0); MEAN CELL VOLUME 88.3 fl (80.0-94.0); MEAN CORPUSCULAR HGB 26.7 pg (27.0-31.0); MEAN CORPUSCULAR HGB CONC 30.2 g/dl (33.0-37.0); MEAN PLATELET VOLUME 11.4 fl (9.6-12.3); MONO # 0.8 10*3/uL (0.1-1.0); MONO % 11.2 % (3.0-9.0); NEUT # 3.7 10*3/uL (2.3-7.9); NEUT % 54.7 % (47.0-73.0); PLATELET COUNT AUTOMATED 106 10*3/uL (130-400); RED BLOOD COUNT 4.35 10*6/uL (4.50-5.90); RED CELL DISTRI WIDTH 14.5 % (0-14.5); WHITE BLOOD COUNT 6.9 10*3/uL (4.8-10.8)
[2018-09-20 06:40] LABS: BUN 27 mg/dl (7-24); CHLORIDE 105 mmol/L (98-107); CREATININE 1.43 mg/dL (0.70-1.30); PHOSPHOROUS 4.5 mg/dL (2.5-4.9); POTASSIUM 4.2 mmol/L (3.5-5.1); SODIUM 141 mmol/L (136-145)
[2018-09-20] MEDS ORDERED: PROZAC20 MG PO (10:59)
[2018-09-20] MEDS ORDERED: TRULICITY1.5 MG/0.5 SC (11:09)
[2018-09-20] MEDS ORDERED: ACULAR 5 ML5 M1 OPH (11:12)
[2018-09-20] MEDS ORDERED: LOTEMAX5 GM OP (11:13)
[2018-09-21] VITALS: BP 101/65
[2018-09-21 06:13] LABS: BASO # 0.1 10*3/uL (0.0-0.1); BASO % 0.8 % (0.0-1.0); EOS # 0.2 10*3/uL (0.0-0.4); EOS % 3.1 % (1.0-4.0); HEMATOCRIT 39.2 % (42.0-52.0); HEMOGLOBIN 11.7 g/dl (14.0-18.0); LYMPH # 2.3 10*3/uL (1.3-4.4); LYMPH % 36.4 % (27.0-41.0); MEAN CELL VOLUME 88.3 fl (80.0-94.0); MEAN CORPUSCULAR HGB 26.4 pg (27.0-31.0); MEAN CORPUSCULAR HGB CONC 29.8 g/dl (33.0-37.0); MEAN PLATELET VOLUME 11.5 fl (9.6-12.3); MONO # 0.7 10*3/uL (0.1-1.0); MONO % 10.8 % (3.0-9.0); NEUT # 3.1 10*3/uL (2.3-7.9); NEUT % 48.4 % (47.0-73.0); PLATELET COUNT AUTOMATED 110 10*3/uL (130-400); RED BLOOD COUNT 4.44 10*6/uL (4.50-5.90); RED CELL DISTRI WIDTH 14.5 % (0-14.5); WHITE BLOOD COUNT 6.4 10*3/uL (4.8-10.8)
[2018-09-21 06:33] LABS: ALBUMIN 3.6 gm/dl (3.1-4.5); BUN 27 mg/dl (7-24); CHLORIDE 103 mmol/L (98-107); CREATININE 1.36 mg/dL (0.70-1.30); POTASSIUM 4.1 mmol/L (3.5-5.1); SGOT/AST 42 IU/L (3-35); SGPT/ALT 44 U/L (12-78); SODIUM 141 mmol/L (136-145)
[2018-09-21 06:34] LABS: ALKALINE PHOSPHATASE 40 U/L (45-117); PHOSPHOROUS 4.3 mg/dL (2.5-4.9); TOTAL PROTEIN 7.5 gm/dL (6.4-8.2)
[2018-09-21 07:37] LABS: VITAMIN D, 25-HYDROXY 45.1 ng/mL (30-100)
[2018-09-21 08:54] VITALS: BP 108/68; BP 112/69
[2018-09-21 12:04] VITALS: BP 118/57
[2018-09-21 16:00] VITALS: BP 126/60
[2018-09-21 20:00] VITALS: BP 118/68; BP 135/67
[2018-09-22] VITALS: BP 127/61
[2018-09-22 06:13] LABS: BASO % 0.8 % (0.0-1.0); EOS # 0.2 10*3/uL (0.0-0.4); EOS % 3.6 % (1.0-4.0); HEMATOCRIT 38.8 % (42.0-52.0); HEMOGLOBIN 11.8 g/dl (14.0-18.0); LYMPH # 2.1 10*3/uL (1.3-4.4); LYMPH % 41.2 % (27.0-41.0); MEAN CELL VOLUME 87.8 fl (80.0-94.0); MEAN CORPUSCULAR HGB 26.7 pg (27.0-31.0); MEAN CORPUSCULAR HGB CONC 30.4 g/dl (33.0-37.0); MEAN PLATELET VOLUME 11.4 fl (9.6-12.3); MONO # 0.5 10*3/uL (0.1-1.0); MONO % 10.7 % (3.0-9.0); NEUT # 2.2 10*3/uL (2.3-7.9); NEUT % 43.5 % (47.0-73.0); PLATELET COUNT AUTOMATED 106 10*3/uL (130-400); RED BLOOD COUNT 4.42 10*6/uL (4.50-5.90); RED CELL DISTRI WIDTH 14.2 % (0-14.5)
[2018-09-22 06:39] LABS: ALBUMIN 3.4 gm/dl (3.1-4.5); ALKALINE PHOSPHATASE 44 U/L (45-117); BUN 28 mg/dl (7-24); CHLORIDE 103 mmol/L (98-107); CREATININE 1.35 mg/dL (0.70-1.30); PHOSPHOROUS 3.6 mg/dL (2.5-4.9); POTASSIUM 4.1 mmol/L (3.5-5.1); SGOT/AST 36 IU/L (3-35); SGPT/ALT 49 U/L (12-78); SODIUM 140 mmol/L (136-145); TOTAL PROTEIN 7.4 gm/dL (6.4-8.2)
[2018-09-22 08:00] VITALS: BP 116/80
[2018-09-22] MEDS ORDERED: MIRTAZAPINE15 M2 PO (11:20)
[2018-09-22] MEDS ORDERED: RIVASTIGMINE1 EACH T (11:20)
[2018-09-22] MEDS ORDERED: BUMETANIDE1 MG PO ×2 (11:22→11:25)
[2018-09-22 12:00] VITALS: BP 108/65
[2018-10-16] MEDS ORDERED: LYRICA25 M1 PO (12:43)
[2018-10-16] MEDS ORDERED: BUMEX2.5 MG/10 IV (12:43)
[2018-10-16] MEDS ORDERED: BUSPIRONE HCL7.5 MG PO (12:43)
[2018-10-16] MEDS ORDERED: BUMETANIDE2 MG PO (13:45)
== END 2018-09-22 12:44 | disposition home or self-care (01) | DRG 291 ==
LOC: ED 20:21 → EDHOLD 23:08 → 4E 09-20 09:00
PROVIDERS: Emergency Medicine; Internal Medicine; Registered Nurse; ADMIT Internal Medicine
PROC: 5A09357 Assistance with Respiratory Ventilation, Less than 24 Consecutive Hours, Continuous Positive Airway Pressure (ICD-10-PCS; principal; 2018-09-20)
DX: I13.0 Hypertensive heart and chronic kidney disease with heart failure and stage 1 through stage 4 chronic kidney disease, or unspecified chronic kidney disease (principal); N17.0 Acute kidney failure with tubular necrosis; I50.33 Acute on chronic diastolic (congestive) heart failure; R45.851 Suicidal ideations; F33.9 Major depressive disorder, recurrent, unspecified; E83.41 Hypermagnesemia; D69.6 Thrombocytopenia, unspecified; R79.89 Other specified abnormal findings of blood chemistry; I25.10 Atherosclerotic heart disease of native coronary artery without angina pectoris; K76.0 Fatty (change of) liver, not elsewhere classified; J44.9 Chronic obstructive pulmonary disease, unspecified; E66.01 Morbid (severe) obesity due to excess calories; E78.5 Hyperlipidemia, unspecified; G47.33 Obstructive sleep apnea (adult) (pediatric); G89.29 Other chronic pain; E11.51 Type 2 diabetes mellitus with diabetic peripheral angiopathy without gangrene; G20 Parkinson's disease; F02.80 Dementia in other diseases classified elsewhere, unspecified severity, without behavioral disturbance, psychotic disturbance, mood disturbance, and anxiety; Z66 Do not resuscitate; Z51.5 Encounter for palliative care; G47.00 Insomnia, unspecified; N18.3 Chronic kidney disease, stage 3 (moderate); E11.22 Type 2 diabetes mellitus with diabetic chronic kidney disease; D64.9 Anemia, unspecified; R74.0 Nonspecific elevation of levels of transaminase and lactic acid dehydrogenase [LDH]; R00.1 Bradycardia, unspecified; E11.65 Type 2 diabetes mellitus with hyperglycemia; Z79.4 Long term (current) use of insulin; I25.2 Old myocardial infarction; Z95.5 Presence of coronary angioplasty implant and graft; Z90.49 Acquired absence of other specified parts of digestive tract; Z98.1 Arthrodesis status; Z87.891 Personal history of nicotine dependence; Z80.0 Family history of malignant neoplasm of digestive organs; Z82.49 Family history of ischemic heart disease and other diseases of the circulatory system; Z83.3 Family history of diabetes mellitus; Z82.3 Family history of stroke; Z79.899 Other long term (current) drug therapy; Z79.82 Long term (current) use of aspirin; Z79.02 Long term (current) use of antithrombotics/antiplatelets; Z68.27 Body mass index [BMI] 27.0-27.9, adult

== ENCOUNTER → 2018-09-26 | Outpatient (CLI) | payer MEDICARE ==
[~2018-09-26] MED LIST changes: +ACULAR 5 ML5 M1 OPH; +BUMEX2.5 MG/10 IV; +BUSPIRONE HCL7.5 MG PO; +LOTEMAX5 GM OP; +LYRICA25 M1 PO; +MIRTAZAPINE15 M2 PO; +PROZAC20 MG PO; +RIVASTIGMINE1 EACH T; +TRULICITY1.5 MG/0.5 SC
[2018-09-26 10:43] LABS: BASO % 0.7 % (0.0-1.0); EOS # 0.1 10*3/uL (0.0-0.4); EOS % 2.3 % (1.0-4.0); HEMATOCRIT 38.5 % (42.0-52.0); HEMOGLOBIN 11.9 g/dl (14.0-18.0); LYMPH # 1.9 10*3/uL (1.3-4.4); LYMPH % 31.1 % (27.0-41.0); MEAN CELL VOLUME 85.9 fl (80.0-94.0); MEAN CORPUSCULAR HGB 26.6 pg (27.0-31.0); MEAN CORPUSCULAR HGB CONC 30.9 g/dl (33.0-37.0); MEAN PLATELET VOLUME 11.4 fl (9.6-12.3); MONO # 0.7 10*3/uL (0.1-1.0); MONO % 11.1 % (3.0-9.0); NEUT # 3.3 10*3/uL (2.3-7.9); NEUT % 54.3 % (47.0-73.0); PLATELET COUNT AUTOMATED 115 10*3/uL (130-400); RED BLOOD COUNT 4.48 10*6/uL (4.50-5.90)
[2018-09-26 11:02] LABS: ALBUMIN 3.6 gm/dl (3.1-4.5); BUN 30 mg/dl (7-24); CHLORIDE 104 mmol/L (98-107); POTASSIUM 4.2 mmol/L (3.5-5.1); SODIUM 140 mmol/L (136-145)
[2018-09-26 11:06] LABS: ALKALINE PHOSPHATASE 46 U/L (45-117); SGOT/AST 27 IU/L (3-35); SGPT/ALT 44 U/L (12-78); TOTAL PROTEIN 7.8 gm/dL (6.4-8.2)
== END | disposition home or self-care (01) ==
LOC: LAB 10:11
PROVIDERS: Nurse Practitioner Family
DX: R53.83 Other fatigue (principal)

== ENCOUNTER → 2019-02-13 | Outpatient (CLI) | payer MEDICARE ==
[2019-02-13 11:59] LABS: BILIRUBIN NEGATIVE (NEGATIVE); BLOOD NEGATIVE (NEGATIVE); CLARITY CLEAR (CLEAR); COLOR YELLOW (YELLOW); GLUCOSE 2+ (NEGATIVE); KETONE NEGATIVE (NEGATIVE); LEUKO ESTERASE NEGATIVE (NEGATIVE); NITRITE NEGATIVE (NEGATIVE); UROBILINOGEN 0.2 E.U./dl (0.2-1.0)
[2019-02-13 12:52] LABS: ALBUMIN 3.6 gm/dl (3.1-4.5); ALKALINE PHOSPHATASE 44 U/L (45-117); BILIRUBIN, DIRECT 0.2 mg/dL (0.0-0.2); BUN 24 mg/dl (7-24); CHLORIDE 103 mmol/L (98-107); CHOLESTEROL 122 mg/dL (<200); CREATININE 1.34 mg/dL (0.70-1.30); HDL CHOLESTEROL 50 mg/dl (40-60); LDL CHOLESTEROL 38 mg/dL (9-159); POTASSIUM 3.9 mmol/L (3.5-5.1); SGOT/AST 53 IU/L (3-35); SGPT/ALT 58 U/L (12-78); SODIUM 140 mmol/L (136-145); TOTAL PROTEIN 7.7 gm/dL (6.4-8.2); TRIGLYCERIDES 171 mg/dl (<150); VLDL CHOLESTEROL 34 mg/dL (6-40)
[2019-02-13 13:00] LABS: VITAMIN D, 25-HYDROXY 44.4 ng/mL (30-100)
== END | disposition home or self-care (01) ==
LOC: LAB 11:15
PROVIDERS: Internal Medicine
DX: E78.5 Hyperlipidemia, unspecified (principal); E11.9 Type 2 diabetes mellitus without complications; E55.9 Vitamin D deficiency, unspecified; G62.9 Polyneuropathy, unspecified

== ENCOUNTER 2019-04-04 15:32 | Inpatient (IN) | payer MEDICARE, MEDICAID ==
[~2019-04-04] VITALS: Ht 180.3 cm; Wt 113.4 kg
[2019-04-04 15:43] VITALS: BP 144/58
[2019-04-04 16:22] LABS: ALBUMIN 3.5 gm/dl (3.1-4.5); ALKALINE PHOSPHATASE 48 U/L (45-117); BUN 29 mg/dl (7-24); CHLORIDE 104 mmol/L (98-107); CREATININE 1.73 mg/dL (0.70-1.30); SGOT/AST 53 IU/L (3-35); SGPT/ALT 57 U/L (12-78); SODIUM 139 mmol/L (136-145); TOTAL PROTEIN 7.3 gm/dL (6.4-8.2)
[2019-04-04 16:25] LABS: BASO # 0.1 10*3/uL (0.0-0.1); BASO % 0.8 % (0.0-1.0); EOS # 0.1 10*3/uL (0.0-0.4); EOS % 1.3 % (1.0-4.0); HEMATOCRIT 38.7 % (42.0-52.0); HEMOGLOBIN 11.8 g/dl (14.0-18.0); LYMPH # 1.6 10*3/uL (1.3-4.4); LYMPH % 25.8 % (27.0-41.0); MEAN CORPUSCULAR HGB 25.3 pg (27.0-31.0); MEAN CORPUSCULAR HGB CONC 30.5 g/dl (33.0-37.0); MONO # 0.7 10*3/uL (0.1-1.0); MONO % 11.8 % (3.0-9.0); NEUT # 3.6 10*3/uL (2.3-7.9); PLATELET COUNT AUTOMATED 129 10*3/uL (130-400); RED BLOOD COUNT 4.66 10*6/uL (4.50-5.90); RED CELL DISTRI WIDTH 13.9 % (0-14.5)
[2019-04-04 16:26] LABS: ACT PARTIAL THROMBO TIME 25.1 SECONDS (20.0-32.1); INTERNATIONAL NORM RATIO 1.1 (2.0-3.5)
[2019-04-04 16:27] LABS: TROPONIN I < 0.015 ng/ml (<0.045)
[2019-04-04 16:46] VITALS: BP 147/61
[2019-04-04 18:00] VITALS: BP 129/64
[2019-04-04] MEDS ORDERED: BUSPAR15 MG PO (18:28)
[2019-04-04] MEDS ORDERED: NOVOLIN 70100 UNIT/2 SQ (18:29)
[2019-04-04] MEDS ORDERED: LORAZEPAM0.5 MG PO (18:29)
[2019-04-04 20:00] VITALS: BP 132/77
[2019-04-05] VITALS: BP 137/84
[2019-04-05 06:08] LABS: BASO % 0.7 % (0.0-1.0); EOS # 0.2 10*3/uL (0.0-0.4); EOS % 2.5 % (1.0-4.0); HEMATOCRIT 38.3 % (42.0-52.0); HEMOGLOBIN 11.7 g/dl (14.0-18.0); LYMPH # 2.2 10*3/uL (1.3-4.4); LYMPH % 37.7 % (27.0-41.0); MEAN CELL VOLUME 83.8 fl (80.0-94.0); MEAN CORPUSCULAR HGB 25.6 pg (27.0-31.0); MEAN CORPUSCULAR HGB CONC 30.5 g/dl (33.0-37.0); MONO # 0.7 10*3/uL (0.1-1.0); MONO % 11.8 % (3.0-9.0); NEUT # 2.8 10*3/uL (2.3-7.9); PLATELET COUNT AUTOMATED 108 10*3/uL (130-400); RED BLOOD COUNT 4.57 10*6/uL (4.50-5.90); RED CELL DISTRI WIDTH 13.9 % (0-14.5); WHITE BLOOD COUNT 5.9 10*3/uL (4.8-10.8)
[2019-04-05 06:23] LABS: ALBUMIN 3.6 gm/dl (3.1-4.5); CREATININE 1.5 mg/dL (0.70-1.30); PHOSPHOROUS 3.4 mg/dL (2.5-4.9); POTASSIUM 4.1 mmol/L (3.5-5.1); TOTAL PROTEIN 7.3 gm/dL (6.4-8.2)
[2019-04-05 06:30] LABS: THYROID STIM HORMONE (HS) 3.54 uIU/ml (0.358-4.75)
[2019-04-05 06:53] LABS: INTERNATIONAL NORM RATIO 1.1 (2.0-3.5)
[2019-04-05 08:00] VITALS: BP 122/66
[2019-04-05 12:00] VITALS: BP 119/54
[2019-04-05 16:00] VITALS: BP 131/72
[2019-04-05 20:00] VITALS: BP 132/53
[2019-04-06] VITALS: BP 105/82
[2019-04-06 06:00] LABS: BASO % 0.5 % (0.0-1.0); EOS # 0.2 10*3/uL (0.0-0.4); EOS % 2.8 % (1.0-4.0); HEMOGLOBIN 11.7 g/dl (14.0-18.0); LYMPH # 2.1 10*3/uL (1.3-4.4); MEAN CELL VOLUME 83.7 fl (80.0-94.0); MEAN CORPUSCULAR HGB 25.8 pg (27.0-31.0); MEAN CORPUSCULAR HGB CONC 30.8 g/dl (33.0-37.0); MEAN PLATELET VOLUME 11.4 fl (9.6-12.3); MONO # 0.8 10*3/uL (0.1-1.0); NEUT # 2.5 10*3/uL (2.3-7.9); NEUT % 44.3 % (47.0-73.0); PLATELET COUNT AUTOMATED 111 10*3/uL (130-400); RED BLOOD COUNT 4.54 10*6/uL (4.50-5.90); RED CELL DISTRI WIDTH 13.9 % (0-14.5); WHITE BLOOD COUNT 5.6 10*3/uL (4.8-10.8)
[2019-04-06 06:17] LABS: BUN 27 mg/dl (7-24); CHLORIDE 103 mmol/L (98-107); CREATININE 1.43 mg/dL (0.70-1.30); POTASSIUM 3.6 mmol/L (3.5-5.1); SODIUM 140 mmol/L (136-145)
[2019-04-06] MEDS ORDERED: BUMETANIDE1 MG PO (09:54)
== END 2019-04-06 10:20 | disposition home or self-care (01) | DRG 291 ==
LOC: ED 15:32 → 4E 17:19 → EDHOLD 17:19 → 4E 17:38
PROVIDERS: Emergency Medicine; Student in an Organized Health Care Education/Training Program; ADMIT Family Medicine
DX: I13.0 Hypertensive heart and chronic kidney disease with heart failure and stage 1 through stage 4 chronic kidney disease, or unspecified chronic kidney disease (principal); I50.33 Acute on chronic diastolic (congestive) heart failure; N17.0 Acute kidney failure with tubular necrosis; E87.2 Acidosis; E44.0 Moderate protein-calorie malnutrition; N18.3 Chronic kidney disease, stage 3 (moderate); E11.65 Type 2 diabetes mellitus with hyperglycemia; E11.22 Type 2 diabetes mellitus with diabetic chronic kidney disease; E83.41 Hypermagnesemia; E66.01 Morbid (severe) obesity due to excess calories; I25.10 Atherosclerotic heart disease of native coronary artery without angina pectoris; G47.33 Obstructive sleep apnea (adult) (pediatric); K76.0 Fatty (change of) liver, not elsewhere classified; J44.9 Chronic obstructive pulmonary disease, unspecified; D64.9 Anemia, unspecified; D69.6 Thrombocytopenia, unspecified; F41.0 Panic disorder [episodic paroxysmal anxiety]; F03.90 Unspecified dementia, unspecified severity, without behavioral disturbance, psychotic disturbance, mood disturbance, and anxiety; E11.42 Type 2 diabetes mellitus with diabetic polyneuropathy; E11.51 Type 2 diabetes mellitus with diabetic peripheral angiopathy without gangrene; I25.2 Old myocardial infarction; Z68.36 Body mass index [BMI] 36.0-36.9, adult; Z90.49 Acquired absence of other specified parts of digestive tract; Z98.1 Arthrodesis status; Z87.891 Personal history of nicotine dependence; Z82.49 Family history of ischemic heart disease and other diseases of the circulatory system; Z79.4 Long term (current) use of insulin; Z80.0 Family history of malignant neoplasm of digestive organs; Z79.82 Long term (current) use of aspirin; Z79.899 Other long term (current) drug therapy

== ENCOUNTER → 2019-06-03 | Outpatient (CLI) | payer MEDICARE ==
[~2019-06-03] MED LIST changes: +BUSPAR15 MG PO; +LORAZEPAM0.5 MG PO; +NOVOLIN 70100 UNIT/2 SQ
[2019-06-03 09:47] LABS: BILIRUBIN NEGATIVE (NEGATIVE); BLOOD NEGATIVE (NEGATIVE); CLARITY CLEAR (CLEAR); COLOR YELLOW (YELLOW); GLUCOSE 3+ (NEGATIVE); KETONE NEGATIVE (NEGATIVE); LEUKO ESTERASE NEGATIVE (NEGATIVE); NITRITE NEGATIVE (NEGATIVE); UROBILINOGEN 0.2 E.U./dl (0.2-1.0)
[2019-06-03 09:51] LABS: WBC 0-2 wbc/hpf (0-5)
[2019-06-03 10:08] LABS: ALBUMIN 3.5 gm/dl (3.1-4.5); BILIRUBIN, DIRECT 0.2 mg/dL (0.0-0.2); CREATININE 1.55 mg/dL (0.70-1.30); POTASSIUM 3.5 mmol/L (3.5-5.1); TOTAL PROTEIN 7.6 gm/dL (6.4-8.2)
[2019-06-03 11:57] LABS: VITAMIN D, 25-HYDROXY 48.8 ng/mL (30-100)
== END | disposition home or self-care (01) ==
LOC: LAB 09:16
PROVIDERS: Internal Medicine
DX: E11.9 Type 2 diabetes mellitus without complications (principal); E78.5 Hyperlipidemia, unspecified; E55.9 Vitamin D deficiency, unspecified; G62.9 Polyneuropathy, unspecified

== ENCOUNTER 2019-09-15 14:51 | Inpatient (IN) | payer MEDICARE ==
[~2019-09-15] VITALS: Ht 180.3 cm; Wt 119.7 kg
[2019-09-15 14:55] VITALS: BP 129/73
[2019-09-15 15:22] LABS: MEAN CELL VOLUME 83.1 fl (80.0-94.0); MEAN CORPUSCULAR HGB 25.7 pg (27.0-31.0); MEAN CORPUSCULAR HGB CONC 30.9 g/dl (33.0-37.0); MEAN PLATELET VOLUME 10.8 fl (9.6-12.3); PLATELET COUNT AUTOMATED 118 10*3/uL (130-400); RED BLOOD COUNT 4.09 10*6/uL (4.50-5.90); RED CELL DISTRI WIDTH 14.7 % (0-14.5); WHITE BLOOD COUNT 5.8 10*3/uL (4.8-10.8)
[2019-09-15 15:31] LABS: ACT PARTIAL THROMBO TIME 25.5 SECONDS (20.0-32.1); INTERNATIONAL NORM RATIO 1.1 (2.0-3.5)
[2019-09-15 15:36] LABS: ALBUMIN 3.4 gm/dl (3.1-4.5); ALKALINE PHOSPHATASE 53 U/L (45-117); BUN 26 mg/dl (7-24); CHLORIDE 98 mmol/L (98-107); CREATININE 1.43 mg/dL (0.70-1.30); LIPASE 110 U/L (73-393); POTASSIUM 3.9 mmol/L (3.5-5.1); SGOT/AST 40 IU/L (3-35); SGPT/ALT 48 U/L (12-78); SODIUM 134 mmol/L (136-145); TOTAL PROTEIN 7.7 gm/dL (6.4-8.2); TROPONIN I < 0.015 ng/ml (<0.045)
[2019-09-15 15:48] LABS: PLATELET SUFFICIENCY LOW (NORMAL); POLYCHROMASIA SLIGHT; TOTAL CELLS COUNTED 100 #CELLS
[2019-09-15 19:56] VITALS: BP 129/57
[2019-09-15 20:30] VITALS: BP 153/69
[2019-09-15] MEDS ORDERED: HUMALOG 751 UNIT/0.0 SC (20:59)
[2019-09-15] MEDS ORDERED: BUMETANIDE1 MG PO (21:02)
[2019-09-15] MEDS ORDERED: VISTARIL50 MG PO ×2 (21:03→21:04)
[2019-09-15] MEDS ORDERED: LYRICA25 M1 PO (21:07)
[2019-09-15] MEDS ORDERED: DERMACINRX5000 UNIT PO (21:12)
[2019-09-15] MEDS ORDERED: FLUOXETINE HCL20 M2 PO (21:13)
[2019-09-15] MEDS ORDERED: PROTONIX40 MG PO (21:15)
[2019-09-15] MEDS ORDERED: VRAYLAR4.5 MG PO (21:16)
[2019-09-16] VITALS: BP 150/88
[2019-09-16 06:08] LABS: BASO % 0.7 % (0.0-1.0); EOS # 0.2 10*3/uL (0.0-0.4); EOS % 2.6 % (1.0-4.0); HEMATOCRIT 35.1 % (42.0-52.0); LYMPH # 1.7 10*3/uL (1.3-4.4); LYMPH % 28.4 % (27.0-41.0); MEAN CELL VOLUME 82.4 fl (80.0-94.0); MEAN CORPUSCULAR HGB 25.4 pg (27.0-31.0); MEAN CORPUSCULAR HGB CONC 30.8 g/dl (33.0-37.0); MEAN PLATELET VOLUME 11.3 fl (9.6-12.3); MONO # 0.7 10*3/uL (0.1-1.0); MONO % 11.5 % (3.0-9.0); NEUT # 3.3 10*3/uL (2.3-7.9); NEUT % 56.3 % (47.0-73.0); PLATELET COUNT AUTOMATED 128 10*3/uL (130-400); RED BLOOD COUNT 4.26 10*6/uL (4.50-5.90); RED CELL DISTRI WIDTH 14.8 % (0-14.5); WHITE BLOOD COUNT 5.9 10*3/uL (4.8-10.8)
[2019-09-16 06:26] LABS: POTASSIUM 3.5 mmol/L (3.5-5.1)
[2019-09-16 06:44] LABS: CREATININE 1.47 mg/dL (0.70-1.30); FREE T4 1.01 ng/dl (0.76-1.46); THYROID STIM HORMONE (HS) 2.3 uIU/ml (0.358-4.75)
[2019-09-16 08:00] VITALS: BP 126/70
[2019-09-16 09:46] LABS: VITAMIN D, 25-HYDROXY 50.3 ng/mL (30-100)
[2019-09-16 11:57] VITALS: BP 118/53
[2019-09-16 16:00] VITALS: BP 142/63
[2019-09-16 20:00] VITALS: BP 124/61
[2019-09-17] VITALS: BP 120/50
[2019-09-17 05:42] VITALS: BP 110/52
[2019-09-17 06:07] LABS: BASO % 0.8 % (0.0-1.0); EOS # 0.2 10*3/uL (0.0-0.4); HEMATOCRIT 36.4 % (42.0-52.0); LYMPH # 1.5 10*3/uL (1.3-4.4); LYMPH % 27.7 % (27.0-41.0); MEAN CELL VOLUME 84.8 fl (80.0-94.0); MEAN CORPUSCULAR HGB 25.2 pg (27.0-31.0); MEAN CORPUSCULAR HGB CONC 29.7 g/dl (33.0-37.0); MEAN PLATELET VOLUME 11.8 fl (9.6-12.3); MONO # 0.7 10*3/uL (0.1-1.0); MONO % 12.5 % (3.0-9.0); NEUT # 2.9 10*3/uL (2.3-7.9); NEUT % 54.6 % (47.0-73.0); PLATELET COUNT AUTOMATED 130 10*3/uL (130-400); RED BLOOD COUNT 4.29 10*6/uL (4.50-5.90); RED CELL DISTRI WIDTH 15.1 % (0-14.5); WHITE BLOOD COUNT 5.3 10*3/uL (4.8-10.8)
[2019-09-17 06:24] LABS: CREATININE 1.63 mg/dL (0.70-1.30); POTASSIUM 3.8 mmol/L (3.5-5.1)
[2019-09-17 08:00] VITALS: BP 130/57
[2019-09-17 12:00] VITALS: BP 115/50
[2019-09-17 16:00] VITALS: BP 121/63
[2019-09-17 20:00] VITALS: BP 133/59
[2019-09-18] VITALS: BP 102/87
[2019-09-18 06:10] LABS: BASO % 0.9 % (0.0-1.0); EOS # 0.2 10*3/uL (0.0-0.4); EOS % 3.7 % (1.0-4.0); HEMATOCRIT 34.5 % (42.0-52.0); LYMPH # 1.3 10*3/uL (1.3-4.4); LYMPH % 28.9 % (27.0-41.0); MEAN CORPUSCULAR HGB 25.6 pg (27.0-31.0); MEAN CORPUSCULAR HGB CONC 30.1 g/dl (33.0-37.0); MEAN PLATELET VOLUME 10.7 fl (9.6-12.3); MONO # 0.5 10*3/uL (0.1-1.0); MONO % 11.6 % (3.0-9.0); NEUT # 2.5 10*3/uL (2.3-7.9); NEUT % 54.3 % (47.0-73.0); PLATELET COUNT AUTOMATED 119 10*3/uL (130-400); RED BLOOD COUNT 4.06 10*6/uL (4.50-5.90); RED CELL DISTRI WIDTH 15.2 % (0-14.5); WHITE BLOOD COUNT 4.6 10*3/uL (4.8-10.8)
[2019-09-18 06:21] LABS: CREATININE 1.52 mg/dL (0.70-1.30); POTASSIUM 3.9 mmol/L (3.5-5.1)
[2019-09-18 12:00] VITALS: BP 149/60
[2019-09-18 16:00] VITALS: BP 120/55
[2019-09-18 20:00] VITALS: BP 112/62; BP 99/37
[2019-09-19] VITALS: BP 129/56
[2019-09-19 07:05] LABS: BASO # 0.1 10*3/uL (0.0-0.1); BASO % 1.3 % (0.0-1.0); EOS # 0.2 10*3/uL (0.0-0.4); HEMATOCRIT 35.1 % (42.0-52.0); LYMPH # 1.4 10*3/uL (1.3-4.4); LYMPH % 29.3 % (27.0-41.0); MEAN CORPUSCULAR HGB 25.2 pg (27.0-31.0); MEAN CORPUSCULAR HGB CONC 29.3 g/dl (33.0-37.0); MEAN PLATELET VOLUME 11.2 fl (9.6-12.3); MONO # 0.6 10*3/uL (0.1-1.0); MONO % 12.4 % (3.0-9.0); NEUT # 2.5 10*3/uL (2.3-7.9); NEUT % 52.4 % (47.0-73.0); PLATELET COUNT AUTOMATED 122 10*3/uL (130-400); RED BLOOD COUNT 4.08 10*6/uL (4.50-5.90); RED CELL DISTRI WIDTH 15.1 % (0-14.5); WHITE BLOOD COUNT 4.7 10*3/uL (4.8-10.8)
[2019-09-19 07:24] LABS: POTASSIUM 3.8 mmol/L (3.5-5.1)
[2019-09-19 07:26] LABS: CREATININE 1.48 mg/dL (0.70-1.30)
[2019-09-19 08:00] VITALS: BP 112/53
[2019-09-19 12:00] VITALS: BP 110/55
[2019-09-19 16:00] VITALS: BP 112/48
[2019-09-19 20:00] VITALS: BP 119/62
[2019-09-20] VITALS: BP 110/50; BP 76/46
[2019-09-20 06:40] LABS: BASO % 0.8 % (0.0-1.0); EOS # 0.2 10*3/uL (0.0-0.4); EOS % 3.4 % (1.0-4.0); HEMATOCRIT 34.7 % (42.0-52.0); LYMPH # 1.4 10*3/uL (1.3-4.4); LYMPH % 28.1 % (27.0-41.0); MEAN CELL VOLUME 85.5 fl (80.0-94.0); MEAN CORPUSCULAR HGB 25.1 pg (27.0-31.0); MEAN CORPUSCULAR HGB CONC 29.4 g/dl (33.0-37.0); MEAN PLATELET VOLUME 11.3 fl (9.6-12.3); MONO # 0.8 10*3/uL (0.1-1.0); MONO % 15.6 % (3.0-9.0); NEUT # 2.6 10*3/uL (2.3-7.9); NEUT % 51.7 % (47.0-73.0); PLATELET COUNT AUTOMATED 115 10*3/uL (130-400); RED BLOOD COUNT 4.06 10*6/uL (4.50-5.90); RED CELL DISTRI WIDTH 15.1 % (0-14.5); WHITE BLOOD COUNT 4.9 10*3/uL (4.8-10.8)
[2019-09-20 07:02] LABS: CREATININE 1.49 mg/dL (0.70-1.30); POTASSIUM 4.2 mmol/L (3.5-5.1)
[2019-09-20 08:00] VITALS: BP 132/80
[2019-09-20] MEDS ORDERED: BUMETANIDE1 MG PO (11:13)
[2019-09-20] MEDS ORDERED: DOXYCYCLINE100 M3 PO (11:13)
== END 2019-09-20 13:10 | disposition home or self-care (01) | DRG 291 ==
LOC: ED 14:51 → 4E 19:02 → EDHOLD 19:02 → 4E 19:32
PROVIDERS: Emergency Medicine; Internal Medicine; ADMIT Family Medicine
DX: I13.0 Hypertensive heart and chronic kidney disease with heart failure and stage 1 through stage 4 chronic kidney disease, or unspecified chronic kidney disease (principal); I50.33 Acute on chronic diastolic (congestive) heart failure; L03.116 Cellulitis of left lower limb; E87.2 Acidosis; E87.1 Hypo-osmolality and hyponatremia; L97.329 Non-pressure chronic ulcer of left ankle with unspecified severity; R74.0 Nonspecific elevation of levels of transaminase and lactic acid dehydrogenase [LDH]; E11.65 Type 2 diabetes mellitus with hyperglycemia; E83.41 Hypermagnesemia; E11.22 Type 2 diabetes mellitus with diabetic chronic kidney disease; E11.51 Type 2 diabetes mellitus with diabetic peripheral angiopathy without gangrene; I25.10 Atherosclerotic heart disease of native coronary artery without angina pectoris; G47.33 Obstructive sleep apnea (adult) (pediatric); K76.0 Fatty (change of) liver, not elsewhere classified; J44.9 Chronic obstructive pulmonary disease, unspecified; D64.9 Anemia, unspecified; N18.3 Chronic kidney disease, stage 3 (moderate); D69.6 Thrombocytopenia, unspecified; F41.0 Panic disorder [episodic paroxysmal anxiety]; E66.01 Morbid (severe) obesity due to excess calories; E11.42 Type 2 diabetes mellitus with diabetic polyneuropathy; F03.90 Unspecified dementia, unspecified severity, without behavioral disturbance, psychotic disturbance, mood disturbance, and anxiety; G89.29 Other chronic pain; F32.9 Major depressive disorder, single episode, unspecified; K59.00 Constipation, unspecified; K21.9 Gastro-esophageal reflux disease without esophagitis; G25.81 Restless legs syndrome; E78.5 Hyperlipidemia, unspecified; Z79.4 Long term (current) use of insulin; Z90.49 Acquired absence of other specified parts of digestive tract; Z98.1 Arthrodesis status; Z87.891 Personal history of nicotine dependence; Z82.49 Family history of ischemic heart disease and other diseases of the circulatory system; Z80.0 Family history of malignant neoplasm of digestive organs; I25.2 Old myocardial infarction; Z79.82 Long term (current) use of aspirin; Z79.899 Other long term (current) drug therapy; Z68.37 Body mass index [BMI] 37.0-37.9, adult

== ENCOUNTER → 2019-10-16 | Outpatient (CLI) | payer MEDICARE ==
[~2019-10-16] MED LIST changes: +DERMACINRX5000 UNIT PO; +DOXYCYCLINE100 M3 PO; +FLUOXETINE HCL20 M2 PO; +HUMALOG 751 UNIT/0.0 SC; +PROTONIX40 MG PO
[2019-10-16 12:21] LABS: ALBUMIN 3.4 gm/dl (3.1-4.5); BILIRUBIN, DIRECT 0.2 mg/dL (0.0-0.2); CREATININE 1.64 mg/dL (0.70-1.30); POTASSIUM 3.4 mmol/L (3.5-5.1); TOTAL PROTEIN 7.8 gm/dL (6.4-8.2)
[2019-10-16 12:21] LABS: BILIRUBIN NEGATIVE (NEGATIVE); BLOOD NEGATIVE (NEGATIVE); CLARITY CLEAR (CLEAR); COLOR YELLOW (YELLOW); GLUCOSE 2+ (NEGATIVE); KETONE NEGATIVE (NEGATIVE); LEUKO ESTERASE NEGATIVE (NEGATIVE); NITRITE NEGATIVE (NEGATIVE); SPECIFIC GRAVITY 1.015 (1.005-1.030); UROBILINOGEN 0.2 E.U./dl (0.2-1.0)
[2019-10-16 12:23] LABS: BACTERIA 2+; HYALINE CAST 51-100; MUCOUS 1+
[2019-10-16 12:26] LABS: FREE T4 0.91 ng/dl (0.76-1.46); THYROID STIM HORMONE (HS) 1.86 uIU/ml (0.358-4.75)
[2019-10-16 12:49] LABS: VITAMIN D, 25-HYDROXY 64.9 ng/mL (30-100)
== END | disposition home or self-care (01) ==
LOC: LAB 11:13
PROVIDERS: Internal Medicine
DX: E78.5 Hyperlipidemia, unspecified (principal); E11.9 Type 2 diabetes mellitus without complications; E04.9 Nontoxic goiter, unspecified; E55.9 Vitamin D deficiency, unspecified; G62.9 Polyneuropathy, unspecified; N40.0 Benign prostatic hyperplasia without lower urinary tract symptoms

== ENCOUNTER 2020-01-03 14:31 | Inpatient (IN) | payer MEDICARE ==
[~2020-01-03] VITALS: Ht 180.3 cm; Wt 121.8 kg
[2020-01-03 14:40] VITALS: BP 114/59
[2020-01-03 15:10] LABS: BASO % 0.4 % (0.0-1.0); EOS # 0.1 10*3/uL (0.0-0.4); HEMATOCRIT 27.9 % (42.0-52.0); LYMPH # 1.2 10*3/uL (1.3-4.4); LYMPH % 26.9 % (27.0-41.0); MEAN CELL VOLUME 89.4 fl (80.0-94.0); MEAN CORPUSCULAR HGB 26.3 pg (27.0-31.0); MEAN CORPUSCULAR HGB CONC 29.4 g/dl (33.0-37.0); MEAN PLATELET VOLUME 10.5 fl (9.6-12.3); MONO # 0.6 10*3/uL (0.1-1.0); MONO % 14.3 % (3.0-9.0); NEUT # 2.5 10*3/uL (2.3-7.9); NEUT % 55.5 % (47.0-73.0); NUCLEATED RED BLOOD CELL 0.7 % (0.0-0.0); PLATELET COUNT AUTOMATED 113 10*3/uL (130-400); RED BLOOD COUNT 3.12 10*6/uL (4.50-5.90); RED CELL DISTRI WIDTH 17.2 % (0-14.5); WHITE BLOOD COUNT 4.5 10*3/uL (4.8-10.8)
[2020-01-03 15:22] LABS: ACT PARTIAL THROMBO TIME 23.2 SECONDS (20.0-32.1); INTERNATIONAL NORM RATIO 1.1 (2.0-3.5)
[2020-01-03 15:28] LABS: ALBUMIN 3.3 gm/dl (3.1-4.5); ALKALINE PHOSPHATASE 58 U/L (45-117); BUN 31 mg/dl (7-24); CHLORIDE 100 mmol/L (98-107); CREATININE 1.64 mg/dL (0.70-1.30); SGOT/AST 57 IU/L (3-35); SGPT/ALT 69 U/L (12-78); SODIUM 136 mmol/L (136-145); TOTAL PROTEIN 7.6 gm/dL (6.4-8.2)
[2020-01-03 15:30] LABS: TROPONIN I < 0.015 ng/ml (<0.045)
[2020-01-03 16:00] VITALS: BP 167/75
[2020-01-03 17:41] VITALS: BP 167/75
--- NOTE | 2020-01-03 17:41 | NUR ---
UPSET SHE CANNOT ACCOMPANY PT TO INPATIENT BED. SHE IS CONCERNED HE CANNOT TELL THEM HIS MEDICATIONS CORRECTLY. SPOKE TO HER AT LENGTH ABOUT HIS MEDICATIONS. LIST WAS FULLY UPDATED BEFORE SHE LEFT.
--- NOTE | 2020-01-03 17:41 | NUR ---
A 64, admitted to 5E, under the services of KRISTIN Chin DO with a diagnosis of GI BLEED. Chief complaint is SHORTNESS OF BREATH. Patient arrived via bed from ER. Monitor applied. Initial assessment completed. Vital signs taken and recorded. KRISTIN CHIN DO notified of admission to the unit. Orders received. See assessment for past medical history, medications and allergies. Patient and/or family oriented to unit. visitation policy reviewed. Clothing/patient valuable form completed. ZULEMA LAWRENCE
--- NOTE | 2020-01-03 18:00 | NUR ---
DR. MARIANO IS AWARE OF CONSULT AND WILL BE IN TO SEE PT IN THE AM.
--- NOTE | 2020-01-03 19:30 | NUR ---
REPORT RECIEVED FROM PERVIOUS RN. ASSUMED CARE OF PATIENT.
--- NOTE | 2020-01-03 19:47 | NUR ---
CHART CHECK COMPLETE.
[2020-01-03 20:00] VITALS: BP 111/49
--- NOTE | 2020-01-03 20:58 | NUR ---
PATIENT IS RESTING IN BED WITH EASY AND REGULAR RESPERS ON ROOM AIR. ASSESSMENT IS COMPLETE WITH NO S/S OF DISTRESS NOTED AT THIS TIME. PATIENT C/O GENERLZIED PAIN AND REQUESTING PERCOCET. PERCOCET GIVEN PER ORDER. BED IS LOW, LOCKED, AND CALL LIGHT IS WITHIN REACH, WILL CONTINUE TO MONITOR, SEE INTERVENTIONS.
--- NOTE | 2020-01-03 21:58 | NUR ---
PRN PERCOCET APPEARS EFFECTIVE. PATIENT IS SLEEPING WITH EASY AND REGULAR RESPERS ON ROOM AIR. CALL LIGHT IS WITHIN REACH, WILL MONITOR EFFECT.
[2020-01-04] VITALS: BP 119/54
--- NOTE | 2020-01-04 | NUR ---
SLEEPING. RESPERS EASY AND REGULAR. CALL LIGHT IS WITHIN REACH.
--- NOTE | 2020-01-04 04:00 | NUR ---
SLEEPING. RESPERS EASY AND REGULAR. CALL LIGHT IS WITHIN REACH.
[2020-01-04 06:16] LABS: BASO % 0.4 % (0.0-1.0); EOS # 0.1 10*3/uL (0.0-0.4); EOS % 2.6 % (1.0-4.0); HEMATOCRIT 27.7 % (42.0-52.0); LYMPH # 1.6 10*3/uL (1.3-4.4); LYMPH % 33.8 % (27.0-41.0); MEAN CELL VOLUME 90.5 fl (80.0-94.0); MEAN CORPUSCULAR HGB 25.8 pg (27.0-31.0); MEAN CORPUSCULAR HGB CONC 28.5 g/dl (33.0-37.0); MONO # 0.7 10*3/uL (0.1-1.0); MONO % 15.1 % (3.0-9.0); NEUT # 2.2 10*3/uL (2.3-7.9); PLATELET COUNT AUTOMATED 114 10*3/uL (130-400); RED BLOOD COUNT 3.06 10*6/uL (4.50-5.90); RED CELL DISTRI WIDTH 17.2 % (0-14.5); WHITE BLOOD COUNT 4.7 10*3/uL (4.8-10.8)
[2020-01-04 06:27] LABS: ALBUMIN 3.1 gm/dl (3.1-4.5); CREATININE 1.55 mg/dL (0.70-1.30); POTASSIUM 3.9 mmol/L (3.5-5.1); TOTAL PROTEIN 7.2 gm/dL (6.4-8.2)
--- NOTE | 2020-01-04 07:00 | NUR ---
PRN PERCOCET GIVEN FOR C/O GENERALIZED PAIN. CALL LIGHT IS WITHIN REACH.
[2020-01-04 08:00] VITALS: BP 132/76
--- NOTE | 2020-01-04 10:15 | NUR ---
IN TO SEE PATIENT REGARDING CONSULT.
[2020-01-04 12:00] VITALS: BP 128/72
--- NOTE | 2020-01-04 14:44 | NUR ---
PT GIVEN PO PERCOCET PER PRN ORDER FOR C/O GENERALIZED PAIN/DISCOMFORT. WILL MONITOR EFFECTIVENESS.
--- NOTE | 2020-01-04 15:44 | NUR ---
PERCOCET RELIEVING PAIN PER PT. WILL CONTINUE TO MONITOR.
[2020-01-04 16:00] VITALS: BP 148/59
--- NOTE | 2020-01-04 19:41 | NUR ---
CHART CHECK COMPLETE.
[2020-01-04 20:00] VITALS: BP 146/60
--- NOTE | 2020-01-04 21:22 | NUR ---
ASSUMED CARE OF PATIENT. PATIENT IS AAOX3 RESTING IN BED WITH EASY AND REGULAR RESPERS ON ROOM AIR. ASSESSMENT IS COMPLETE WITH NO S/S OF DISTRESS NOTED A THIS TIME. PATIENT C/O PAIN TO HANDS AND FEET RATING A 5/10. PRN PERCOCET GIVEN AT THIS TIME. BED IS LOW, LOCKED, AND CALL LIGHT IS WITHIN REACH. INFORMED PATIENT OF NPO AFTER MIDNIGHT FOR EGD/COLO. PATIENT DID NOT HAVE ANY QUESTIONS REGARDING PROCEDURE. WILL CONTINUE TO MONITOR, SEE INTERVENTIONS.
--- NOTE | 2020-01-04 22:22 | NUR ---
PRN PERCOCET EFFECTIVE, PATIENT IS SLEEPING WITH EASY AND REGULAR RESPERS ON ROOM AIR. CALL LIGHT IS WITHIN REACH.
[2020-01-05] VITALS (8 sets, daily range): BP systolic 104–154; BP diastolic 32–67
[2020-01-05 06:24] LABS: BASO % 0.7 % (0.0-1.0); EOS # 0.1 10*3/uL (0.0-0.4); EOS % 2.4 % (1.0-4.0); HEMATOCRIT 28.1 % (42.0-52.0); LYMPH # 1.3 10*3/uL (1.3-4.4); LYMPH % 31.2 % (27.0-41.0); MEAN CELL VOLUME 90.6 fl (80.0-94.0); MEAN CORPUSCULAR HGB 26.5 pg (27.0-31.0); MEAN CORPUSCULAR HGB CONC 29.2 g/dl (33.0-37.0); MEAN PLATELET VOLUME 11.6 fl (9.6-12.3); MONO # 0.5 10*3/uL (0.1-1.0); NEUT # 2.2 10*3/uL (2.3-7.9); NEUT % 52.2 % (47.0-73.0); PLATELET COUNT AUTOMATED 117 10*3/uL (130-400); WHITE BLOOD COUNT 4.1 10*3/uL (4.8-10.8)
--- NOTE | 2020-01-05 06:30 | NUR ---
PATIENT SHOWERED WITH HIBACLEANSE AND BED LINENS CHANGED. WILL CONTINUE TO MONITOR.
[2020-01-05 06:41] LABS: BUN 28 mg/dl (7-24); CHLORIDE 105 mmol/L (98-107); CREATININE 1.43 mg/dL (0.70-1.30); SODIUM 135 mmol/L (136-145)
--- NOTE | 2020-01-05 08:07 | NUR ---
IMDUR GIVEN PRIOR TO PT HAVING PROCEDURES
--- NOTE | 2020-01-05 12:06 | NUR ---
CALLED IN WITH CONCERNS, IF PT IS DISCHARGED TODAY, STATE HE ALWAYS GETS 3 DAYS OF LASIX EVERY TIME HE IS ADMITTED, REQUESTS TO SPEAK WITH DOCTOR AFTER SCOPES ARE COMPLETED REMAINS NPO, UP INDEPENDENTLY IN ROOM, AWAITING EGD/COLO
--- NOTE | 2020-01-05 12:49 | NUR ---
Server Programmer in to talk to patient. Patient states lives at HOME with . There are 16 steps in the home. Physician: SONYA Pharmacy: [facility] Home health services: NONE Patient's level of ADLs: INDEPENDENT Patient has working utilities: YES DME: [employer] Follow-up physician's appointment after d/c: WILL BE MADE BY HOSPITALIST NURSE DIRECTOR ON DISCHARGE Does patient want to access PORTAL?: NO Discharge plan PT LIVES AT HOME WITH HIS AND IS INDEPENDENT IN HIS CARE. DENIES HE WILL HAVE ANY NEEDS ON DISCHARGE. TALKED TO HIM ABOUT HOME HEALTH BUT STATES HE DOES NOT NEED IT. DOES SAY HE HAS A NURSE WHO COMES ONCE A MONTH FROM INSURANCE. WILL CONTINUE TO FOLLOW. STATES HE WILL HAVE A RIDE HOME. CARLOS MORRISON
--- NOTE | 2020-01-05 14:34 | NUR ---
Occupational Therapy referral received. Patient not available for OT evaluation as he is out of his room for a colonoscopy. OT will attempt at a later date. Thank you. Marissa Rosas OTR/l
--- NOTE | 2020-01-05 14:40 | NUR ---
PHYSICAL THERAPY Anna received chart reviewed pt at procedure/colonoscopy will follow at a later date. Lisa Richard PT
--- NOTE | 2020-01-05 15:45 | NUR ---
Nursing screen received and Occupational Therapy referral received. Thank you. Marissa Rosas OTR/l
--- NOTE | 2020-01-05 16:15 | NUR ---
RETURNED FROM SURGERY DINNER ORDERED
--- NOTE | 2020-01-05 16:47 | NUR ---
WANTS TO TALK TO WHATEVER HOSPITALIST HAS FANNY TOMORROW 01/05 CELL [phone]
--- NOTE | 2020-01-05 17:03 | NUR ---
DIABETES EDUCATION DONE, PT STATES HE PAYS NO ATTENTION TO HIS DIABETIC DIET AND HIS MORNING BS IS ALWAYS OVER 200
--- NOTE | 2020-01-05 21:00 | NUR ---
ASSUMED CARE OF PATIENT. PATIENT IS AAOX3 SPEAKING ON PHONE. OFFERED TO COME BACK PATIENT SAID IT WAS OK. ASSESSMENT IS COMPLETE WITH NO S/S OF DISTRESS NOTED AT THIS TIME. PATIENT C/O PAIN TO HANDS AND FEET RATING A 5/10. PRN PERCOCET GIVEN AT THIS TIME. BED IS LOW, LOCKED, AND CALL LIGHT IS WITHIN REACH. WILL CONTINUE TO MONITOR, SEE INTERVENTIONS.
--- NOTE | 2020-01-05 22:00 | NUR ---
PER PERCOCET EFFECTIVE PER PATIENT. CALL LIGHT IS WITHIN REACH.
--- NOTE | 2020-01-05 23:22 | NUR ---
CHART CHECK COMPLETE.
[2020-01-06] VITALS: BP 136/58
[2020-01-06 06:56] LABS: BASO % 0.6 % (0.0-1.0); EOS # 0.1 10*3/uL (0.0-0.4); EOS % 2.5 % (1.0-4.0); HEMATOCRIT 27.8 % (42.0-52.0); LYMPH # 1.3 10*3/uL (1.3-4.4); LYMPH % 36.3 % (27.0-41.0); MEAN CELL VOLUME 91.4 fl (80.0-94.0); MEAN CORPUSCULAR HGB 25.7 pg (27.0-31.0); MEAN CORPUSCULAR HGB CONC 28.1 g/dl (33.0-37.0); MEAN PLATELET VOLUME 10.9 fl (9.6-12.3); MONO # 0.5 10*3/uL (0.1-1.0); NEUT # 1.7 10*3/uL (2.3-7.9); NEUT % 46.3 % (47.0-73.0); PLATELET COUNT AUTOMATED 106 10*3/uL (130-400); RED BLOOD COUNT 3.04 10*6/uL (4.50-5.90); RED CELL DISTRI WIDTH 16.5 % (0-14.5); WHITE BLOOD COUNT 3.6 10*3/uL (4.8-10.8)
[2020-01-06 07:06] LABS: ALBUMIN 3.1 gm/dl (3.1-4.5); ALKALINE PHOSPHATASE 50 U/L (45-117); BUN 21 mg/dl (7-24); CHLORIDE 107 mmol/L (98-107); CREATININE 1.22 mg/dL (0.70-1.30); POTASSIUM 3.8 mmol/L (3.5-5.1); SGOT/AST 55 IU/L (3-35); SGPT/ALT 62 U/L (12-78); SODIUM 140 mmol/L (136-145); TOTAL PROTEIN 7.3 gm/dL (6.4-8.2)
--- NOTE | 2020-01-06 08:00 | NUR ---
ASSESSMENT COMPLETE. SITTING UP IN BED. ALERT AND ORIENT. PLEASANT. TOOK PO MEDS WITHOUT DIFFICULTY. CALL LIGHT IN REACH.
--- NOTE | 2020-01-06 08:48 | NUR ---
Received call from Community palliative care nursePatricia. Community palliative care follows patient in the community.
[2020-01-06] MEDS ORDERED: Carafate1 GM PO (11:18)
[2020-01-06] MEDS ORDERED: PANTOPRAZOLE SO40 MG PO (11:18)
--- NOTE | 2020-01-06 11:55 | NUR ---
PT WILL DISCHARGE TO HOME WITH HIS WHEN MEDICALLY STABLE. WILL CONTINUE TO FOLLOW.
[2020-01-06 12:00] VITALS: BP 138/70
--- NOTE | 2020-01-06 12:55 | NUR ---
PHYSICAL THERAPY Physical Therapy evaluation completed on with full evaluation to follow. Recommend physical therapy per plan of care and Home with w supervision and full HH servcies upon discharge. Thank you for this referral. Lisa Richard PT
--- NOTE | 2020-01-06 12:56 | NUR ---
Occupational Therapy evaluation completed on five with full evaluation to follow. Recommend occupational therapy per plan of care and home with HH with family assist PRN upon discharge. Thank you for this referral. Gretchen Ernst OTR/L
--- NOTE | 2020-01-06 13:39 | NUR ---
NOTIFIED OF CONSULT AND PT BEING DISCHARGED. STATED HE WILL BE HERE IN TEN MINUTES AND WILL SEE HIM
--- NOTE | 2020-01-06 13:45 | NUR ---
DR MAGDALENO SEEN PT. ORDERED VIRA HOSE WITH [facility]. WANTED HIM TO STOP IN HIS OFFICE IMMEDITELY ON DISCHARGE.
--- NOTE | 2020-01-06 14:00 | NUR ---
DISCHARGE TO HOME WITH . ALL DISCHARGE ORDERS GIVEN AND VERBALLY STATES UNDERSTANDING. ASSISTED OUT TO CAR VIA WHEELCHAIR. IN STABLE CONDITION.
== END 2020-01-06 14:00 | disposition home or self-care (01) | DRG 377 ==
LOC: ED 14:31 → EDHOLD 16:12 → 5E 16:12
PROVIDERS: Internal Medicine; Nurse Practitioner Family; Registered Nurse; ADMIT Student in an Organized Health Care Education/Training Program; ATTEND Student in an Organized Health Care Education/Training Program
PROC: 0DBL8ZZ Excision of Transverse Colon, Via Natural or Artificial Opening Endoscopic (ICD-10-PCS; principal; 2020-01-05)
PROC: 0DB68ZX Excision of Stomach, Via Natural or Artificial Opening Endoscopic, Diagnostic (ICD-10-PCS; principal; 2020-01-05)
PROC: 0DBK8ZZ Excision of Ascending Colon, Via Natural or Artificial Opening Endoscopic (ICD-10-PCS; principal; 2020-01-05)
DX: K29.01 Acute gastritis with bleeding (principal); I50.33 Acute on chronic diastolic (congestive) heart failure; D62 Acute posthemorrhagic anemia; I13.0 Hypertensive heart and chronic kidney disease with heart failure and stage 1 through stage 4 chronic kidney disease, or unspecified chronic kidney disease; K63.5 Polyp of colon; I25.10 Atherosclerotic heart disease of native coronary artery without angina pectoris; J44.9 Chronic obstructive pulmonary disease, unspecified; G47.33 Obstructive sleep apnea (adult) (pediatric); G89.29 Other chronic pain; K59.00 Constipation, unspecified; E11.22 Type 2 diabetes mellitus with diabetic chronic kidney disease; F41.1 Generalized anxiety disorder; K21.9 Gastro-esophageal reflux disease without esophagitis; E78.5 Hyperlipidemia, unspecified; E11.51 Type 2 diabetes mellitus with diabetic peripheral angiopathy without gangrene; D72.810 Lymphocytopenia; D69.6 Thrombocytopenia, unspecified; E11.65 Type 2 diabetes mellitus with hyperglycemia; E83.41 Hypermagnesemia; K76.0 Fatty (change of) liver, not elsewhere classified; F41.0 Panic disorder [episodic paroxysmal anxiety]; G30.0 Alzheimer's disease with early onset; N18.2 Chronic kidney disease, stage 2 (mild); F02.80 Dementia in other diseases classified elsewhere, unspecified severity, without behavioral disturbance, psychotic disturbance, mood disturbance, and anxiety; F32.9 Major depressive disorder, single episode, unspecified; G25.81 Restless legs syndrome; E66.9 Obesity, unspecified; E11.42 Type 2 diabetes mellitus with diabetic polyneuropathy; I89.0 Lymphedema, not elsewhere classified; I83.90 Asymptomatic varicose veins of unspecified lower extremity; I25.2 Old myocardial infarction; Z80.0 Family history of malignant neoplasm of digestive organs; Z90.49 Acquired absence of other specified parts of digestive tract; Z87.891 Personal history of nicotine dependence; Z82.49 Family history of ischemic heart disease and other diseases of the circulatory system; Z79.899 Other long term (current) drug therapy

== ENCOUNTER → 2020-02-17 | Outpatient (CLI) | payer MEDICARE ==
[~2020-02-17] MED LIST changes: +Carafate1 GM PO; +DECADRON6 M1 PO; +DOXEPIN HCL10 MG PO; +LEADER ASPIRIN81 MG PO; +PANTOPRAZOLE SO40 MG PO; +PERCOCET 7.5-31 EACH PO
[2020-02-17 10:30] LABS: BILIRUBIN Negative (Negative); BLOOD Negative (Negative); CLARITY Clear (Clear); COLOR Yellow (Yellow); GLUCOSE 3+ (Negative); KETONE Negative (Negative); LEUKO ESTERASE Negative (Negative); NITRITE Negative (Negative); SPECIFIC GRAVITY 1.015 (1.001-1.030)
[2020-02-17 10:49] LABS: ALBUMIN 3.3 gm/dl (3.1-4.5); BILIRUBIN, DIRECT 0.2 mg/dL (0.0-0.2); CREATININE 1.55 mg/dL (0.70-1.30); FREE T4 0.86 ng/dl (0.76-1.46); TOTAL PROTEIN 7.4 gm/dL (6.4-8.2)
[2020-02-17 10:54] LABS: THYROID STIM HORMONE (HS) 1.76 uIU/ml (0.358-4.75)
[2020-02-17 10:55] LABS: VITAMIN D, 25-HYDROXY 61.3 ng/mL (30-100)
== END | disposition home or self-care (01) ==
LOC: LAB 10:05
PROVIDERS: ATTEND Internal Medicine
DX: E11.9 Type 2 diabetes mellitus without complications (principal); E78.5 Hyperlipidemia, unspecified; E04.9 Nontoxic goiter, unspecified; E55.9 Vitamin D deficiency, unspecified; N40.0 Benign prostatic hyperplasia without lower urinary tract symptoms; G62.9 Polyneuropathy, unspecified

== ENCOUNTER 2020-03-10 14:59 | Emergency (ER) | payer MEDICARE ==
[~2020-03-10] VITALS: Ht 180.3 cm; Wt 122.0 kg
[~2020-03-10 14:59] MED LIST changes: -DECADRON6 M1 PO; -DOXEPIN HCL10 MG PO; -LEADER ASPIRIN81 MG PO; -PERCOCET 7.5-31 EACH PO
[2020-03-10 16:25] LABS: BASO % 0.2 % (0.0-1.0); HEMATOCRIT 27.7 % (42.0-52.0); LYMPH # 0.8 10*3/uL (1.3-4.4); LYMPH % 17.6 % (27.0-41.0); MEAN CELL VOLUME 83.7 fl (80.0-94.0); MEAN CORPUSCULAR HGB 23.6 pg (27.0-31.0); MEAN CORPUSCULAR HGB CONC 28.2 g/dl (33.0-37.0); MEAN PLATELET VOLUME 10.8 fl (9.6-12.3); MONO # 0.6 10*3/uL (0.1-1.0); MONO % 14.2 % (3.0-9.0); NEUT % 67.3 % (47.0-73.0); PLATELET COUNT AUTOMATED 119 10*3/uL (130-400); RED BLOOD COUNT 3.31 10*6/uL (4.50-5.90); RED CELL DISTRI WIDTH 16.3 % (0-14.5); WHITE BLOOD COUNT 4.4 10*3/uL (4.8-10.8)
[2020-03-10 16:48] LABS: ALBUMIN 2.8 gm/dl (3.1-4.5); CREATININE 1.77 mg/dL (0.70-1.30); POTASSIUM 4.1 mmol/L (3.5-5.1); TOTAL PROTEIN 7.2 gm/dL (6.4-8.2); TROPONIN I 0.035 ng/ml (<0.045)
[2020-03-10 17:00] LABS: ACT PARTIAL THROMBO TIME 29.9 SECONDS (20.0-32.1); INTERNATIONAL NORM RATIO 1.1 (2.0-3.5)
[2020-03-10] MEDS ORDERED: DECADRON6 M1 PO (17:41)
[2020-03-10 17:52] VITALS: BP 144/69
== END 2020-03-10 19:15 | disposition home or self-care (01) ==
LOC: ED 14:59
PROVIDERS: Family Medicine
DX: U07.1 COVID-19 (principal); Z79.899 Other long term (current) drug therapy; Z79.2 Long term (current) use of antibiotics; Z79.84 Long term (current) use of oral hypoglycemic drugs

== ENCOUNTER 2020-03-14 10:34 | Inpatient (IN) | payer MEDICARE ==
[~2020-03-14] VITALS: Ht 180.3 cm; Wt 117.9 kg
[~2020-03-14 10:34] MED LIST changes: +DECADRON6 M1 PO
[2020-03-14 10:55] VITALS: BP 129/49
[2020-03-14 11:36] LABS: ABG BASE EXCESS 2.3 mmol/L (-2.0-2.0); ARTERIAL BLOOD GAS PH 7.449 (7.35-7.45)
[2020-03-14 11:38] LABS: HEMATOCRIT 57.7 % (42.0-52.0); MEAN CELL VOLUME 81.2 fl (80.0-94.0); MEAN CORPUSCULAR HGB 22.6 pg (27.0-31.0); MEAN CORPUSCULAR HGB CONC 27.9 g/dl (33.0-37.0); NUCLEATED RED BLOOD CELL 0.1 10*3/uL (0.0-0.0); NUCLEATED RED BLOOD CELL 2.9 % (0.0-0.0); PLATELET COUNT AUTOMATED 79 10*3/uL (130-400); RED BLOOD COUNT 7.11 10*6/uL (4.50-5.90); WHITE BLOOD COUNT 4.9 10*3/uL (4.8-10.8)
[2020-03-14 11:51] LABS: ALBUMIN 2.6 gm/dl (3.1-4.5); ALKALINE PHOSPHATASE 45 U/L (45-117); BUN 59 mg/dl (7-24); CHLORIDE 102 mmol/L (98-107); CPK 242 U/L (39-308); CREATININE 1.89 mg/dL (0.70-1.30); LDH 556 U/L (87-241); SGOT/AST 74 IU/L (3-35); SGPT/ALT 56 U/L (12-78); SODIUM 138 mmol/L (136-145); TOTAL PROTEIN 7.7 gm/dL (6.4-8.2)
[2020-03-14 11:53] LABS: TROPONIN I < 0.015 ng/ml (<0.045)
[2020-03-14 12:01] LABS: TOTAL CELLS COUNTED 100 #CELLS
[2020-03-14 12:02] LABS: PLATELET SUFFICIENCY LOW (NORMAL); POLYCHROMASIA SLIGHT
[2020-03-14 12:21] VITALS: BP 153/60
[2020-03-14 12:38] LABS: BILIRUBIN Negative (Negative); BLOOD 1+ (Negative); CLARITY Clear (Clear); COLOR Yellow (Yellow); GLUCOSE 2+ (Negative); KETONE Negative (Negative); LEUKO ESTERASE Negative (Negative); NITRITE Negative (Negative); SPECIFIC GRAVITY 1.015 (1.001-1.030); UROBILINOGEN 0.2 E.U./dl (0.0-1.0)
[2020-03-14 12:50] LABS: BACTERIA 2+
[2020-03-14 12:51] LABS: COARSE GRANULAR CAST 21-30
[2020-03-14 13:00] VITALS: BP 112/25
--- NOTE | 2020-03-14 13:00 | NUR ---
A 64, admitted to ICCU, under the services of BRANDIN Lei DO with a diagnosis of RESP FAILURE. Chief complaint is SHORTNESS OF BREATH. Patient arrived via ambulance from ER. Monitor applied. Initial assessment completed. Vital signs taken and recorded. BRANDIN LEI DO notified of admission to the unit. Orders received. See assessment for past medical history, medications and allergies. Patient and/or family oriented to unit. [facility] ICCU visitation policy reviewed. Clothing/patient valuable form completed. JOHN ROBISON
[2020-03-14 13:19] LABS: INTERNATIONAL NORM RATIO 1.1 (2.0-3.5)
[2020-03-14 13:22] LABS: ACT PARTIAL THROMBO TIME < 20.0 SECONDS (20.0-32.1)
--- NOTE | 2020-03-14 15:14 | NUR ---
DR. AGUILERA'S ANSWERING SERVICE NOTIFIED OF CONSULT.
--- NOTE | 2020-03-14 15:16 | NUR ---
DR. AGUILERA CALLED BACK AND NOTIFIED OF CONSULT,
[2020-03-14 15:35] LABS: ABG BASE EXCESS 3.2 mmol/L (-2.0-2.0); ARTERIAL BLOOD GAS PH 7.456 (7.35-7.45)
[2020-03-14 16:00] VITALS: BP 104/73
[2020-03-14] MEDS ORDERED: LEADER ASPIRIN81 MG PO (16:03)
[2020-03-14] MEDS ORDERED: PERCOCET 7.5-31 EACH PO (16:04)
[2020-03-14] MEDS ORDERED: IMDUR SA30 MG PO (16:07)
[2020-03-14] MEDS ORDERED: DOXEPIN HCL10 MG PO (16:11)
[2020-03-14] MEDS ORDERED: BUMETANIDE1 MG PO (16:12)
[2020-03-14] MEDS ORDERED: BUMETANIDE2 MG PO (16:13)
--- NOTE | 2020-03-14 16:16 | NUR ---
MED REC UP TO DATE PER LIST FROM
--- NOTE | 2020-03-14 18:00 | NUR ---
NOTIFIED DR. VALDIVIA THAT HEART RATE IS 140'S SINUS TACHY AND A DRCheryl SHOULD COME TO SEE PATIENT. ALSO NOTIFIED THAT PULSE OX IS RANGING 75-85% WITH A POOR WAFEFORM. ORDERS RECEIVED FOR ATIVAN 1MG IV.
--- NOTE | 2020-03-14 18:10 | NUR ---
HEART RATE 140'S. PULSE OX 76%. ANXIOUS. SHAKING. MEDICATED WITH ATIVAN 1MG IV
--- NOTE | 2020-03-14 18:25 | NUR ---
FACETIMED WITH DR. CARR THAT PATIENT IS STRUGGLING TO BREATHE. RESPIRATORY RATE 40'S. SOAKING WET. BLOOD SUGAR 185. DR. CARR GAVE ORDERS TO INTUBATE. AWAITING PERFECTO NUNO CA TO COME IN FOR ANOTHER PATIENT. REMAINS ON BI-PAP WITH FIO2 100%. HEART RATE 130'S. PULSE OX HARD TO GET A READ BECAUSE FINGERS WERE COOL. PULSE OX PLACED ON FOREHEAD AND 87%. 184- HEART RATE DROPPED TO 65 AND EYES ROLLED BACK IN HEAD. MOTTLED. CODE WES CALLED. 184- INTUBATED WITH A #8 ENDOTUBE 26 LIP. SEE MAGDA HARVEY RECORD.
--- NOTE | 2020-03-14 19:25 | NUR ---
NO PULSE FELT. NO BP. CODE CALLED. AND SON HERE IN ROOM.
--- NOTE | 2020-03-14 19:40 | NUR ---
[facility] NOTIFIED AND RELEASED DUE TO COVID. TALKED WITH BETH AND REF # [id number].
--- NOTE | 2020-03-14 22:10 | NUR ---
INDIRA NOTIFIED THAT PT AND BODY TAKEN TO [facility].
--- NOTE | 2020-03-15 00:41 | NUR ---
I WAS CALLED TO [facility] FOR THE PREPARATIONS OF INTUBATIONS OF TWO PATIENTS IN THE ICCU. WHEN I ARRIVED TO [facility] I BEGAN GATHERING EQUIPMENT FOR THE FIRST PROCEDURE. I HEARD THE ONE [facility] NURSE SAY THAT SHE WAS CALLING A CODE BLUE ON THE PATIENT ICCU2, WHICH WAS ONE OF THE INTUBATIONS. WHICH AT THE TIME I DID NOT KNOW IF THERE WERE DOCTORS ORDERS FOR THE INTUBATION. THE [facility]U NURSE THAT WAS WITH THE PATIENT, SAID THAT HE NEEDED TO BE INTUBATED. I ALREADY HAD THE TUBE, AND THE GLIDASCOPE IN HAND. I TOOK IT UPON MYSELF TO INTUBATE THE PATIENT QUICKLY POSSIBLE. THE ER DOCTOR, NOT DID THE DIESEL ROLLER OPERATOR HAVE ARRIVED YET. I WENT INTO THE ROOM AND PREPARED THE PATIENT FOR THE INTUBATION. DURING THE PROCEDURE THE PATIENT HAD LARGE AMOUNTS OF FROTHY, SLIGHTLY PINK TINGED SPUTUM COMING FROM HIS VOCAL CORDS. I SUCTIONED THE PATIENT WITH THE YANKEUR, AND PLACED THE 8.0 MM ENDOTRACHEAL TUBE AT 26 CM AT THE LIP. THE TUBE PLACEMENT WAS CONFIRMED WITH CAPNOGRAPHY AND BILATERAL AUSCILTATION. AFTER THE PLACEMENT OF THE TUBE, THE DIESEL ROLLER OPERATOR AND ER DOCTOR HAD ARRIVED. THE DIESEL ROLLER OPERATOR ALSO CONFIRMED PLACEMENT OF THE TUBE. X RAY WAS ORDERED, BUT WAS NOT PERFORMED DUE TO THE CODE STILL BEING ACTIVE. RN AWARE, AND PRESENT DURING THE SITUATION.
== END 2020-03-14 23:23 | disposition expired | DRG 871 ==
LOC: ED 10:34 → ICCU 12:05 → EDHOLD 12:05 → ICCU 12:53
PROVIDERS: Emergency Medicine; Internal Medicine Critical Care Medicine; ADMIT Internal Medicine; ATTEND Internal Medicine
PROC: 5A12012 Performance of Cardiac Output, Single, Manual (ICD-10-PCS; principal; 2020-03-14)
PROC: 06HY33Z Insertion of Infusion Device into Lower Vein, Percutaneous Approach (ICD-10-PCS; 2020-03-14)
PROC: B54BZZA Ultrasonography of Right Lower Extremity Veins, Guidance (ICD-10-PCS; 2020-03-14)
DX: A41.89 Other specified sepsis (principal); U07.1 COVID-19; J96.01 Acute respiratory failure with hypoxia; N17.0 Acute kidney failure with tubular necrosis; E43 Unspecified severe protein-calorie malnutrition; I13.0 Hypertensive heart and chronic kidney disease with heart failure and stage 1 through stage 4 chronic kidney disease, or unspecified chronic kidney disease; I50.30 Unspecified diastolic (congestive) heart failure; E87.2 Acidosis; D68.59 Other primary thrombophilia; E11.22 Type 2 diabetes mellitus with diabetic chronic kidney disease; N18.30 Chronic kidney disease, stage 3 unspecified; K21.9 Gastro-esophageal reflux disease without esophagitis; E11.51 Type 2 diabetes mellitus with diabetic peripheral angiopathy without gangrene; G89.4 Chronic pain syndrome; E11.42 Type 2 diabetes mellitus with diabetic polyneuropathy; F03.90 Unspecified dementia, unspecified severity, without behavioral disturbance, psychotic disturbance, mood disturbance, and anxiety; I25.10 Atherosclerotic heart disease of native coronary artery without angina pectoris; Z90.49 Acquired absence of other specified parts of digestive tract; Z87.891 Personal history of nicotine dependence; Z82.49 Family history of ischemic heart disease and other diseases of the circulatory system; Z79.899 Other long term (current) drug therapy; Z79.82 Long term (current) use of aspirin; Z79.84 Long term (current) use of oral hypoglycemic drugs; I25.2 Old myocardial infarction; Z68.36 Body mass index [BMI] 36.0-36.9, adult; F41.1 Generalized anxiety disorder